=== PATIENT | female | born 1970 | race Caucasian/White ===

== ENCOUNTER 2019-10-01 23:02 | Emergency (ER) | payer MEDICAID, SELFPAY ==
[2019-10-01 23:17] VITALS: PULSE 95; RESP 16; TEMP 36.8; O2SAT 98; BMI 33.2
[2019-10-01 23:49] LABS: Basophils # 0.1 10^3/uL (0.0-0.1); Basophils % 0.5 %; Eosinophils # 0.1 10^3/uL (0.0-0.8); Eosinophils % 0.6 %; Hematocrit 39.4 % (37.0-47.0); Hemoglobin 12.2 g/dL (11.5-15.3); Lymphocytes # 4.4 10^3/uL (0.8-4.8); Mean Corpuscular Hemoglobin 27.5 pg (28.0-34.0); Mean Corpuscular Volume 88.9 fL (81-99); Mean Platelet Volume 10.2 fL (7.4-10.4); Monocytes # 0.7 10^3/uL (0.2-0.9); Monocytes % 5.5 %; Neutrophils # 7.9 10^3/uL (1.8-7.7); Neutrophils % 60.1 %; Nucleated Red Blood Cells % 0 %; Platelet Count 481 10^3/cmm (130-400); Red Blood Count 4.43 10^6/uL (4.1-5.3); White Blood Count 13.2 10^3/uL (4.0-10.0)
[2019-10-02 00:04] LABS: Alanine Aminotransferase 10 U/L (0-33); Albumin Level 4.4 g/dL (3.5-5.2); Alkaline Phosphatase 108 IU/L (35-105); Anion Gap 17.9 (5-19); Aspartate Amino Transferase 12 U/L (0-32); Blood Urea Nitrogen 8 mg/dL (6-20); Carbon Dioxide 24 mmol/L (22-29); Chloride 105 mmol/L (98-107); Globulin 3.4 g/dL (1.3-4.6); Glomerular Filtration Rate 76.6 mL/min (90-130); Glucose 116 mg/dL (74-109); Lipase 23 U/L (13-60); Potassium 3.9 mmol/L (3.5-5.1); Sodium 143 mmol/L (136-145); Total Bilirubin 0.2 mg/dL (0.15-1.2); Total Protein 7.8 g/dL (6.6-8.7)
[2019-10-02 00:37] VITALS: RESP 18
--- NOTE | 2019-10-02 00:39 | ED_ITS ---
HPI - General Adult General: Chief complaint: Abdominal Pain Stated complaint: arriaga & abd pain Time Seen by Provider: 10/02/19 00:31 History of Present Illness: HPI narrative: Patient here complaining about vaginal bleeding over the last 2 months. Usually uses pads. She is seen her primary care doctor gave her steroids she said for 3 days and it did stop but has started back up. Patient did have a couple of minor nosebleeds on the way in the state that they have a wood stove at home and air is very dry and she does have allergies at times. MD complaint: DUB Onset (ago): month(s) (2) Radiation: non-radiation Severity: mild Relieving factors: none Associated symptoms: Deny chest pain, dyspnea, headache(s), nausea, rash or vomiting Review of Systems Const: Denies: fever, chills or body aches Eyes: Denies: change in vision or blurry vision ENMT: Denies: throat pain or nasal congestion Card: Denies: chest pain or shortness of breath on exertion Resp: Denies: shortness of breath, productive cough or non-productive cough GI: Denies: abdominal pain, nausea or vomiting : Reports: bleeding between periods and change in menstrual flow; Denies: painful menstruation or absence of menstruation Musc: Denies: extremity pain Skin/Breast: Denies: rash Neuro: Denies: headache Psych: Denies: anxiety or depression Patrick/Lymph: Denies: easy bruising PFSH ED PFSH: Statuses (acute, chronic, etc) shown below reflect problem list status as previously entered and may not be historically accurate Social History Smoking and tobacco status: former smoker Female Reproductive History: Date of last menstrual period: 10/01/19 Physical Exam Const: COMMON NORMALS: no apparent distress, average body habitus and oriented x3 HENMT: COMMON NORMALS: normocephalic HEAD & SCALP: normal to inspection and normocephalic FACE & SINUS: normal facial exam Eye: COMMON NORMALS: conjunctivae normal GENERAL EYE: normal appearance of both eyes CONJUNCTIVA: Yes conjunctivae normal Neck/C-Spine: COMMON NORMALS: no JVD Chest: COMMONS NORMALS: inspection of chest normal Resp: COMMON NORMALS: normal respiratory effort and clear to auscultation bilaterally AUSCULTATION: clear to auscultation bilaterally Cardio: COMMON NORMALS: no JVD, regular rate and regular rhythm RATE: regular rate RHYTHM: regular rhythm GI: COMMON NORMALS: normal to inspection, nondistended, normoactive bowel sounds Extremity: COMMON NORMALS: normal to inspection and full ROM Neuro: COMMON NORMALS: oriented x3 Course Vital Signs: Vital signs: Vital Signs Temperature 98.2 F 10/01/19 23:17 Pulse Rate 98 10/02/19 00:58 Respiratory Rate 16 10/02/19 00:58 Blood Pressure 139/81 10/02/19 00:58 Pulse Oximetry 97 10/02/19 00:58 [facility] - General Adult Lab Data: Labs: Lab Results 10/01/19 10/01/19 Range/Units 23:40 23:40 WBC 13.2 H (4.0-10.0) 10^3/ uL RBC 4.43 (4.1-5.3) 10^6/u L Hgb 12.2 (11.5-15.3) g/dL Hct 39.4 (37.0-47.0) % MCV 88.9 (81-99) fL MCH 27.5 L (28.0-34.0) pg MCHC 31.0 (30.0-36.0) g/dL RDW 15.0 (12.1-15.1) % Plt Count 481 H (130-400) 10^3/c mm MPV 10.2 (7.4-10.4) fL Neut % (Auto) 60.1 % Lymph % (Auto) 33.0 % [place] % (Auto) 5.5 % Eos % (Auto) 0.6 % Baso % (Auto) 0.5 % Neut # (Auto) 7.9 H (1.8-7.7) 10^3/u L Lymph # (Auto) 4.4 (0.8-4.8) 10^3/u L [place] # (Auto) 0.7 (0.2-0.9) 10^3/u L Eos # (Auto) 0.1 (0.0-0.8) 10^3/u L Baso # (Auto) 0.1 (0.0-0.1) 10^3/u L Nucleated RBC % (a uto) 0 % Nucleated RBCs # 0.0 /100WBC Sodium 143 (136-145) mmol/L Potassium 3.9 (3.5-5.1) mmol/L Chloride 105 (98-107) mmol/L Carbon Dioxide 24 (22-29) mmol/L Anion Gap 17.9 (5-19) BUN 8 (6-20) mg/dL Creatinine 0.8 (0.5-0.9) mg/dL GFR Calculation 76.6 L (90-130) mL/min Glucose 116 H (74-109) mg/dL Calcium 10.0 (8.6-10.0) mg/Dl Total Bilirubin 0.2 (0.15-1.2) mg/dL AST 12 (0-32) U/L ALT 10 (0-33) U/L Alkaline Phosphata se 108 H (35-105) IU/L Total Protein 7.8 (6.6-8.7) g/dL Albumin 4.4 (3.5-5.2) g/dL Globulin 3.4 (1.3-4.6) g/dL Lipase 23 (13-60) U/L Discharge Plan Discharge Patient Disposition: Home, Self-Care Clinical Impression: DUB (dysfunctional uterine bleeding) Condition: Stable Prescriptions: New Zofran 4 mg tablet 4 mg PO Q8H PRN (Reason: nausea and vomiting) Qty: 14 RF: 0 Provera 10 mg tablet 10 mg PO DAILY 10 Days Qty: 10 RF: 0 Discharge Orders: Discharge Order (Routine); Ordered 10/02/19 Ordered By: Isacc Ballard Referrals: Adri Vazquez MD [Primary Care Provider] - Discharge Diet: Usual diet Discharge Activity: Resume usual activity Patient Instructions: Dysfunctional Uterine Bleeding (ED) Activity Restrictions/Additional Instructions: Follow-up with medical provider as directed. Take medications as prescribed. Return to the ER are your medical provider if condition worsens. Read and understand discharge instructions. Patient instructed follow-up Dr. Terrazas is here she might need a pelvic ultrasound if bleeding does not dissipate. 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
--- NOTE | 2019-10-02 00:39 | PC.NURSE ---
Patient reports that she has had abdominal pain and vaginal bleeding for 2 months. Patient denies any other symptoms at this time.
[2019-10-02] MEDS: medroxyprogesterone 2.5 mg Tablet 10 MG PO (00:54)
[2019-10-02] MEDS: ondansetron 4 MG Tablet PO (00:55)
[2019-10-02 00:58] VITALS: BP 139/81; PULSE 98; RESP 16; O2SAT 97
== END 2019-10-02 01:03 | disposition home or self-care (01) ==
PROVIDERS: Emergency Medicine; Emergency Provider Nurse Practitioner Family; Family Provider Family Medicine; PCP Family Medicine
DX: N93.8 Other specified abnormal uterine and vaginal bleeding (principal); Z87.891 Personal history of nicotine dependence
CPT/HCPCS: 36415; 80053; 83690; 85025; 99281; Q0162

== ENCOUNTER 2019-11-19 22:58 | Emergency (ER) | payer MEDICAID, SELFPAY ==
--- NOTE | 2019-11-19 23:00 | ED_ITS ---
Entered by Gia Samuel, acting as scribe for Ramya Marley MD HPI - General Adult General: Chief complaint: Extremity Problem,Nontraumatic Stated complaint: post op problems Time Seen by Provider: 11/19/19 22:59 Source: patient and family Mode of arrival: wheelchair History of Present Illness: HPI narrative: 49 y/o female presents to the ED with complaint of right foot pain. Pt states she had surgery last on her ankle for cyst removal. She is supposed to be non-weight bearing and was given crutches. Pt has been walking on it periodically, especially when she stands to go to the bathroom. She thinks she may have popped a stitch and would like to have it looked at. complaint: Right foot pain Onset (ago): day(s) Location: right and lower extremity Severity: mild Exacerbating factors: movement and other (weight bearing) Associated symptoms: Deny chest pain, dyspnea, headache(s), nausea, rash or vomiting Review of Systems Const: Denies: fever, chills, body aches or change in appetite Eyes: Denies: blurry vision or eye discomfort ENMT: Denies: throat pain or dental pain Card: Denies: chest pain Resp: Denies: shortness of breath GI: Denies: abdominal pain, nausea, vomiting or diarrhea : Denies: painful urination Musc: Denies: neck pain or back pain Skin/Breast: Denies: rash Neuro: Denies: headache Psych: Denies: depression Patrick/Lymph: Denies: easy bruising All/Imm: Denies: hives PFS ED PFSH: Medical History (Updated 11/19/19 @ 23:34 by Ramya Marley MD) Asthma Chronic migraine History of closed head injury Hyperlipidemia Insomnia Surgical History (Updated 11/11/19 @ 15:31 by Adri Vazquez MD) H/O tubal ligation Hx of cholecystectomy Hx of tonsillectomy Social History Smoking and tobacco status: former smoker Alcohol intake: never Female Reproductive History: Date of last menstrual period: 10/01/19 Physical Exam Const: COMMON NORMALS: no apparent distress and oriented x3 HENMT: COMMON NORMALS: normocephalic and head/scalp atraumatic HEAD & SCALP: normocephalic and atraumatic Eye: COMMON NORMALS: PERRL and EOMs intact bilaterally PUPIL: Yes PERRL Neck/C-Spine: COMMON NORMALS: full ROM and supple Chest: COMMONS NORMALS: inspection of chest normal and palpation of chest normal Resp: COMMON NORMALS: normal respiratory effort, no retractions, no use of accessory muscles and clear to auscultation bilaterally AUSCULTATION: clear to auscultation bilaterally Cardio: COMMON NORMALS: regular rate, regular rhythm and no murmurs RATE: regular rate RHYTHM: regular rhythm GI: COMMON NORMALS: normal to inspection, nondistended, normoactive bowel sounds, soft to palpation, non-tender and no masses PALPATION: Yes soft Extremity: NARRATIVE EXTREMITY EXAM: healing incision noted to right ankle, all stitches accounted for Neuro: COMMON NORMALS: oriented x3, moves all extremities and no focal motor deficits Psych: COMMON NORMALS: mental status grossly normal, thought process normal and cooperative THOUGHT PROCESS: normal thought process Skin: NARRATIVE SKIN EXAM: bruising noted to ankle and foot Course 2 Vital Signs: Vital signs: Vital Signs Temperature 97.9 F 11/19/19 23:11 Pulse Rate 88 11/19/19 23:33 Respiratory Rate 16 11/19/19 23:11 Blood Pressure 142/80 11/19/19 23:11 Pulse Oximetry 95 11/19/19 23:11 MDM - General Adult MDM Narrative: Medical decision making narrative: Patient presents here with wanting a wound check. Patient walked on her right foot that had surgery on it in 1 to make sure she did not pop a stitch. I did undress her dressing and wound is well-appearing with all stitches intact. She has no signs of infection and no bleeding. We will redress and she is to follow-up as scheduled next . Discharge Plan Discharge Patient Disposition: Home, Self-Care Clinical Impression: Visit for wound check Condition: Stable Prescriptions: No Action rizatriptan 10 mg tablet,disintegrating 10 mg PO ONCE RF: 0 albuterol sulfate 90 mcg/actuation HFA aerosol inhaler 1 - 2 puff INHALATION QID RF: 0 rizatriptan [Maxalt] 10 mg tablet 10 mg PO ONCE PRN (Reason: migraine headache) RF: 0 melatonin 10 mg capsule 10 mg PO .COMPLEX RF: 0 Zofran 4 mg tablet 4 mg PO Q8H PRN (Reason: nausea and vomiting) Qty: 14 RF: 0 Discharge Orders: Discharge Order (Routine); Ordered 11/19/19 Ordered By: Ramya Marley Referrals: Adri Vazquez MD [Primary Care Provider] - Discharge Diet: Advance as tolerated Discharge Activity: Resume usual activity Patient Instructions: Post Operative Pain Discharge Date/Time: 11/19/19 23:47 Coding Level of Care Code ED Airfield Services Officer for Chg Fwd Exam Comprehensive The documentation recorded by the Jimmie simmons Ashley, accurately reflects the service I personally performed and the decisions made by Donell gallegos Korby, MD Nov 19, 2019 22:58
[2019-11-19 23:11] VITALS: BP 142/80; PULSE 94; RESP 16; TEMP 36.6; O2SAT 95; BMI 37.5
[2019-11-19 23:33] VITALS: PULSE 88
[2019-11-19 23:47] VITALS: PULSE 88; RESP 16; O2SAT 99
== END 2019-11-19 23:47 | disposition home or self-care (01) ==
LOC: ER 23:40
PROVIDERS: Emergency Provider Emergency Medicine; Family Provider Family Medicine; PCP Family Medicine
DX: Z48.01 Encounter for change or removal of surgical wound dressing (principal); J45.909 Unspecified asthma, uncomplicated; E78.5 Hyperlipidemia, unspecified; Z87.891 Personal history of nicotine dependence
CPT/HCPCS: 99281

== ENCOUNTER → 2020-01-08 15:49 | Outpatient (BNVA) | payer MEDICAID, SELFPAY | PROVIDERS: Family Provider Family Medicine; PCP Family Medicine; Visit Provider Emergency Medicine | DX: J06.9 Acute upper respiratory infection, unspecified (principal); Z11.59 Encounter for screening for other viral diseases; J40 Bronchitis, not specified as acute or chronic | CPT/HCPCS: 87071; 87400; 87635; 87880 ==

== ENCOUNTER 2020-05-15 17:28 | Emergency (ER) | payer MEDICAID, SELFPAY ==
[2020-05-15 17:29] VITALS: BP 138/87; PULSE 110; RESP 20; TEMP 36.8; O2SAT 97; BMI 30.6
--- NOTE | 2020-05-15 17:37 | W.ED.ABDPA2 ---
HPI - Abdominal Pain General: Chief Complaint: Abdominal Pain Stated Complaint: weakness/vomiting Time Seen by Provider: 05/15/20 17:34 Source: patient Mode of arrival: ambulatory Limitations: no limitations History of Present Illness: HPI narrative: Patient comes in today with complaints of nausea and diarrhea. [facility] [place] and was diagnosed with a sinus infection. Patient was given a dose of Augmentin but was not able to tolerate it and threw up. Patient spouse states that last night she had a heavy meal with a lot of fat and grease and since she do not have a gallbladder he believes that is what her symptoms are more from than the sinus infection. Patient spouse states that she sometimes gets diarrhea after eating heavy meals and it causes her to get dehydrated. Patient appears mildly unwell. Patient appears in no pain. Associated Symptoms: Reports diarrhea, nausea and vomiting Review of Systems General: Reports: 10 or more systems reviewed and unremarkable except in HPI and below GI: Reports: nausea, vomiting and diarrhea PFS ED PFSH: Medical History (Updated 05/15/20 @ 18:56 by DANIKA Stewart) Asthma Chronic migraine History of closed head injury Hyperlipidemia Insomnia Surgical History H/O tubal ligation Hx of cholecystectomy Hx of tonsillectomy Family History Father Cancer Social History Smoking and tobacco status: former smoker Quit status (tobacco): has quit using tobacco Alcohol intake: never Desire information about alcohol rehabilitation?: No Desire information about substance/drug rehabilitation?: No History of recent travel: No Current gender identity: Female Female Reproductive History: Spontaneous abortions: No Physical Exam Const: COMMON NORMALS: no acute distress and patient oriented x3 GENERAL APPEARANCE: cooperative HENMT: COMMON NORMALS: normocephalic and Normal external nose present HEAD & SCALP: normal to inspection and normocephalic NOSE: Normal external nose present TYMPANIC MEMBRANE: TM abnormal TM laterality: right Details: dull and fluid behind TM MOUTH: Normal oral and palatal mucosa present THROAT: posterior oropharynx normal Eye: GENERAL EYE: appearance normal, both eyes and all related structures Neck/C-Spine: COMMON NORMALS: full ROM Lymph: LYMPHATIC: no lymphadenopathy noted Chest: COMMONS NORMALS: normal inspection of the chest Resp: COMMON NORMALS: normal respiratory effort EFFORT & INSPECTION: Yes able to speak in complete sentences Cardio: COMMON NORMALS: regular rate and regular rhythm RATE: regular rate RHYTHM: regular rhythm GI: COMMON NORMALS: non-tender : COMMON NORMALS: Yes no CVA tenderness BLADDER/KIDNEY EXAM: Yes no CVA tenderness Back/Pelvis: COMMON NORMALS: no CVA tenderness and thoracic and lumbar spine normal to inspection Extremity: COMMON NORMALS: normal to inspection Neuro: COMMON NORMALS: patient oriented x3 and moves all extremities Psych: COMMON NORMALS: mental status grossly normal and cooperative Skin: COMMON NORMALS: no rashes or lesions noted GENERAL SKIN EXAM: no rashes or lesions noted Course Vital Signs: Vital signs: Vital Signs Temperature 98.3 F 05/15/20 17:29 Pulse Rate 91 05/15/20 17:49 Respiratory Rate 20 H 05/15/20 17:29 Blood Pressure 118/70 05/15/20 17:49 Pulse Oximetry 97 05/15/20 17:29 MDM - Abdominal Pain MDM Narrative: Medical decision making narrative: Patient comes in today for complaints of nausea and vomiting. Patient reports being started on medication for a sinus infection this morning and started throwing up after taking medication. On exam patient has some mucosal swelling of the sinuses. Right tympanic membrane is dull with purulent fluid behind it. No cervical lymphadenopathy. Lungs are clear to auscultation. Skin is warm and dry. Differential diagnosis includes but not limited to chronic otitis media, sinusitis, adverse effect of drug, malingering. Laboratory values were unremarkable. Encourage patient drink plenty of fluids. Recommended continuation of the medication as directed. Follow-up with primary care as needed. Lab Data: Labs: Lab Results 05/15/20 05/15/20 05/15/20 Range/Units 17:47 17:47 17:55 WBC 11.6 H (4.0-10.0) 10^3/ uL RBC 4.34 (4.1-5.3) 10^6/u L Hgb 11.0 L (11.5-15.3) g/dL Hct 36.2 L (37.0-47.0) % MCV 83.4 (81-99) fL MCH 25.3 L (28.0-34.0) pg MCHC 30.4 (30.0-36.0) g/dL RDW 15.9 H (12.1-15.1) % Plt Count 399 (130-400) 10^3/c mm MPV 11.0 H (7.4-10.4) fL Neut % (Auto) 59.6 % Lymph % (Auto) 31.6 % [place] % (Auto) 6.3 % Eos % (Auto) 1.5 % Baso % (Auto) 0.7 % Neut # (Auto) 6.92 (1.8-7.7) 10^3/u L Lymph # (Auto) 3.7 (0.8-4.8) 10^3/u L [place] # (Auto) 0.7 (0.2-0.9) 10^3/u L Eos # (Auto) 0.2 (0.0-0.8) 10^3/u L Baso # (Auto) 0.1 (0.0-0.1) 10^3/u L Nucleated RBC % (a uto) 0 % Nucleated RBCs # 0.0 /100WBC Sodium 137 (136-145) mmol/L Potassium 3.7 (3.5-5.1) mmol/L Chloride 101 (98-107) mmol/L Carbon Dioxide 26 (22-29) mmol/L Anion Gap 13.7 (5-19) BUN 9 (6-20) mg/dL Creatinine 0.7 (0.5-0.9) mg/dL GFR Calculation 88.9 L (90-130) mL/min Glucose 107 (65-115) mg/dL Calculated Osmolal ity 280 L (285-295) mOsm/k g Calcium 8.7 (8.5-10.5) mg/dL Total Bilirubin 0.3 (0.15-1.2) mg/dL AST 13 (0-32) U/L ALT 10 (0-33) U/L Alkaline Phosphata se 111 H (35-105) IU/L Total Protein 8.2 (6.6-8.7) g/dL Albumin 4.2 (3.5-5.2) g/dL Globulin 4.0 (1.3-4.6) g/dL Lipase 24 (13-60) U/L Urine Color Yellow (Yellow) Urine Appearance Clear (CLEAR) Urine pH 5 (5-7) Ur Specific Gravit y 1.010 (1.005-1.030) Urine Protein Neg (Negative) Urine Glucose (UA) Norm (Normal) Urine Ketones Negative (Negative) Urine Blood Neg (Negative) Urine Nitrate Negative (Negative) Urine Bilirubin Neg (NEGATIVE) Urine Urobilinogen Norm (Negative) mg/dL Ur Leukocyte Rose ase Negative (Negative) Discharge Plan Discharge Patient Disposition: Home Clinical Impression: Nausea & vomiting Qualifiers: Vomiting type: unspecified Vomiting Intractability: non-intractable Qualified Code(s): R11.2 - Nausea with vomiting, unspecified Sinusitis Qualifiers: Sinusitis location: unspecified location Chronicity: acute Recurrence: recurrent Qualified Code(s): J01.91 - Acute recurrent sinusitis, unspecified Condition: Stable Prescriptions: No Action tramadol 50 mg tablet 50 mg PO Q6H PRN (Reason: pain) Qty: 20 RF: 0 prednisone 20 mg tablet 20 mg PO DAILY 5 Days Qty: 5 RF: 0 ondansetron 4 mg tablet,disintegrating 4 mg PO Q6H PRN (Reason: nausea and vomiting) Qty: 12 RF: 0 fexofenadine-pseudoephedrine [Vane-D 12 Hour] 60-120 mg tablet extended release 12 hr 1 tab PO Q12H PRN (Reason: sinus symptoms) 15 Days Qty: 30 RF: 0 amoxicillin-pot clavulanate 875-125 mg tablet 1 tab PO BID 7 Days Qty: 14 RF: 0 loratadine 10 mg tablet 10 mg PO DAILY PRN (Reason: Allergy Symptoms) RF: 0 Maxalt 10 mg tablet 10 mg PO PRN PRN (Reason: migraine headache) RF: 0 albuterol sulfate 90 mcg/actuation HFA aerosol inhaler 1 - 2 puff INHALATION QID PRN (Reason: Shortness Of Breath) RF: 0 Aspir-81 81 mg Tablet,Delayed Release (Dr/Ec) 81 mg PO PRN RF: 0 Discharge Orders: Discharge Order (Routine); Ordered 05/15/20 Ordered By: Federico Escalona Referrals: Adri Vazquez MD [Primary Care Provider] - Discharge Diet: Usual diet Discharge Activity: Increase activity as tolerated Patient Instructions: Vomiting - Adult Activity Restrictions/Additional Instructions: Light diet. Drink plenty of fluids. Continue routine medications as directed. Follow-up with primary care as needed. Coding Level of Care Code ED Infant Room Teacher for Nettie Fweli Exam Comprehensive
[2020-05-15 17:49] VITALS: BP 118/70; BP 122/76; BP 126/79; PULSE 87; PULSE 91; PULSE 92
[2020-05-15 17:56] LABS: Basophils # 0.1 10^3/uL (0.0-0.1); Basophils % 0.7 %; Eosinophils # 0.2 10^3/uL (0.0-0.8); Eosinophils % 1.5 %; Hematocrit 36.2 % (37.0-47.0); Lymphocytes # 3.7 10^3/uL (0.8-4.8); Lymphocytes % 31.6 %; Mean Corpuscular HGB Conc 30.4 g/dL (30.0-36.0); Mean Corpuscular Hemoglobin 25.3 pg (28.0-34.0); Mean Corpuscular Volume 83.4 fL (81-99); Monocytes # 0.7 10^3/uL (0.2-0.9); Monocytes % 6.3 %; Neutrophils # 6.92 10^3/uL (1.8-7.7); Neutrophils % 59.6 %; Nucleated Red Blood Cells % 0 %; Platelet Count 399 10^3/cmm (130-400); Red Blood Count 4.34 10^6/uL (4.1-5.3); Red Cell Distribution Width 15.9 % (12.1-15.1); White Blood Count 11.6 10^3/uL (4.0-10.0)
[2020-05-15] MEDS: sodium chloride 0.9% 1,000 ML 999 ML IV (18:03)
[2020-05-15] MEDS: ondansetron 2 mg/ML SDV 2 mL 4 MG IVP (18:03)
[2020-05-15 18:08] LABS: Add Urine Microscopic? NO
[2020-05-15 18:10] LABS: Alanine Aminotransferase 10 U/L (0-33); Albumin Level 4.2 g/dL (3.5-5.2); Alkaline Phosphatase 111 IU/L (35-105); Anion Gap 13.7 (5-19); Aspartate Amino Transferase 13 U/L (0-32); Blood Urea Nitrogen 9 mg/dL (6-20); Calcium 8.7 mg/dL (8.5-10.5); Carbon Dioxide 26 mmol/L (22-29); Chloride 101 mmol/L (98-107); Glomerular Filtration Rate 88.9 mL/min (90-130); Glucose 107 mg/dL (65-115); Lipase 24 U/L (13-60); Osmolality Calculated 280 mOsm/kg (285-295); Potassium 3.7 mmol/L (3.5-5.1); Sodium 137 mmol/L (136-145); Total Bilirubin 0.3 mg/dL (0.15-1.2); Total Protein 8.2 g/dL (6.6-8.7)
[2020-05-15 18:13] LABS: Bilirubin Urine Neg (NEGATIVE); Blood Urine Neg (Negative); Glucose Urine UA Norm (Normal); Ketones Urine Negative (Negative); Leukocyte Esterase Urine Negative (Negative); Nitrate Urine Negative (Negative); Protein Urine Neg (Negative); Urine Appearance Clear (CLEAR); Urine Color Yellow (Yellow); Urobilinogen Urine Norm (Negative); pH Urine 5 (5-7)
[2020-05-15 19:01] VITALS: BP 118/81; PULSE 91; RESP 18; TEMP 36.8; O2SAT 98
[2020-05-15] MEDS: ketorolac 30 mg/mL INJ 15 MG IVP (19:11)
[2020-05-15 19:14] VITALS: BP 118/81; PULSE 91; RESP 18; TEMP 36.8; O2SAT 98
== END 2020-05-15 19:14 | disposition home or self-care (01) ==
PROVIDERS: Emergency Medicine; Emergency Provider Nurse Practitioner Family; PCP Family Medicine
DX: J01.91 Acute recurrent sinusitis, unspecified (principal); R11.2 Nausea with vomiting, unspecified; Z79.82 Long term (current) use of aspirin; E78.5 Hyperlipidemia, unspecified; Z87.891 Personal history of nicotine dependence
CPT/HCPCS: 12345; 80053; 81003; 83690; 85025; 96361; 96374; 96375; 99283; J1885; J2405; J7030

== ENCOUNTER 2021-01-09 15:06 | Emergency (ER) | payer MEDICAID, SELFPAY ==
[2021-01-09 15:37] VITALS: BP 121/72; PULSE 109; RESP 15; TEMP 36.6; O2SAT 96; BMI 35.3
--- NOTE | 2021-01-09 16:30 | XRR_ITS ---
PROCEDURE INFORMATION: Exam: XR Left Knee Exam date and time: 01/09/2021 4:38 PM Age: 50 years old Clinical indication: Pain; Knee; Left TECHNIQUE: Imaging protocol: XR Left knee. Views: 3 views. COMPARISON: No relevant prior studies available. FINDINGS: Bones/joints: No acute displaced fracture or dislocation. 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 Soft tissues: Normal. XR/XR knee LT 3V* [id number] IMPRESSION: 1. No acute abnormality. 2. Mild osteoarthritis, greatest in medial compartment.
--- NOTE | 2021-01-09 16:56 | W.ED.EXTPRO ---
HPI - Extremity Problem General: Chief complaint: Extremity Problem,Nontraumatic Stated complaint: LFT KNEE PAIN Time Seen by Provider: 01/09/21 16:29 History of Present Illness: HPI Narrative: 50-year-old female comes in complaining of left knee pain. No trauma she had it x-rayed previously was told there was something broken she has been using a cane symptoms got worse last night she denies any recent trauma she remotely had some injury to it and was told she would have difficulty with her going forward. MD Complaint: joint pain Onset (ago): day(s) Pain Consistency: constant Location: left and knee Quality: sharp Radiation: none Relieving factors: immobilization and elevation Exacerbating factors: weight bearing, walking and palpation Associated symptoms: Deny arthralgias, chest pain, fever(s), myalgias, rash or short of breath Review of Systems Const: Denies: fever(s) ENMT: Denies: throat pain, ear or mastoid pain, nasal discharge or nasal congestion Card: Denies: chest pain Resp: Denies: dyspnea, productive cough or non-productive cough GI: Denies: abdominal pain, nausea, vomiting, hematemesis, coffee ground emesis, diarrhea, constipation, bloating, hematochezia or melena : Denies: flank pain, difficulty voiding, dysuria, urinary frequency or urinary urgency Skin/Breast: Denies: rash PFSH ED PFSH: Medical History (Updated 01/09/21 @ 17:01 by Jose Carlos Tee DO) Asthma Chronic migraine History of closed head injury Hyperlipidemia Insomnia Surgical History H/O tubal ligation Hx of cholecystectomy Hx of tonsillectomy Family History Father Cancer Social History Smoking and tobacco status: former smoker Quit status (tobacco): has quit using tobacco Alcohol intake: never Desire information about alcohol rehabilitation?: No Desire information about substance/drug rehabilitation?: No History of recent travel: No Current gender identity: Female Female Reproductive History: Spontaneous abortions: No Physical Exam Const: COMMON NORMALS: no acute distress GENERAL APPEARANCE: cooperative and comfortable ORIENTATION/CONSCIOUSNESS: Yes awake, Yes oriented to person, Yes oriented to place and Yes oriented to time HENMT: COMMON NORMALS: normocephalic, atraumatic and hearing grossly normal bilaterally HEAD & SCALP: normocephalic and atraumatic Neck/C-Spine: COMMON NORMALS: no JVD Resp: COMMON NORMALS: normal respiratory effort, No retractions, No use of accessory muscles and clear to auscultation bilaterally AUSCULTATION: clear to auscultation bilaterally Cardio: COMMON NORMALS: no JVD, regular rate, regular rhythm and No murmurs present (Cardio) RATE: regular rate RHYTHM: regular rhythm GI: COMMON NORMALS: Soft to palpation and No hepatosplenomegaly present AUSCULTATION: Yes normoactive bowel sounds PALPATION: Yes Soft to palpation, No Tenderness to palpation present (GI), No Guarding due to palpation present (GI) and Yes No hepatosplenomegaly present Extremity: COMMON NORMALS: normal to inspection, capillary refill normal, no clubbing, cyanosis or edema, no calf tenderness and no pedal edema Neuro: SENSORIUM/ORIENTATION: Yes oriented to person, Yes oriented to place and Yes oriented to time Skin: COMMON NORMALS: no rashes or lesions noted GENERAL SKIN EXAM: no rashes or lesions noted Course Vital Signs: Vital signs: Vital Signs Temperature 97.8 F 01/09/21 15:37 Pulse Rate 100 01/09/21 17:27 Respiratory Rate 18 01/09/21 17:27 Blood Pressure 123/68 01/09/21 17:27 Pulse Oximetry 99 01/09/21 17:27 MDM - Extremity (Nontraumatic) MDM Narrative: Medical decision making narrative: We will set her up to see Ortho as follow-up nonweightbearing with knee immobilizer. Discharge Plan Discharge Patient Disposition: Home Clinical Impression: Closed fracture fibula, head Condition: Stable Prescriptions: New tramadol 50 mg tablet 50 mg PO Q6H PRN (Reason: pain) Qty: 10 RF: 0 No Action Maxalt 10 mg tablet 10 mg PO PRN PRN (Reason: migraine headache) Qty: 9 RF: 3 ibuprofen 800 mg tablet 800 mg PO TID RF: 0 tramadol 50 mg tablet 50 mg PO Q6H PRN (Reason: pain) Qty: 20 RF: 0 Discharge Orders: Discharge ED (Routine); Ordered 01/09/21 Ordered By: Jose Carlos Tee Referrals: Adri Vazquez MD [Primary Care Provider] - Patient Instructions: Opioid Safety Activity Restrictions/Additional Instructions: For knee immobilizer until released by Ortho. water manager will call to refer to orthopedics Coding Level of Care Code ED Outside Sales Representative Insurance for Chg Fwd Exam Comprehensive
[2021-01-09 17:27] VITALS: BP 123/68; PULSE 100; RESP 18; O2SAT 99
--- NOTE | 2021-01-11 09:36 | DCPLANNER ---
operations program manager had message to schedule a follow up appointment for patient with ortho for a fibular head fracture. operations program manager called the ortho clinic, spoke with Mariposa, gave clinic patients information. operations program manager was told that patients information would be printed and reviewed. Clinic will call patient with appointment information.
--- NOTE | 2021-01-12 08:15 | DCPLANNER ---
Patient has a follow up appointment scheduled for December at 1:[address] Breen at [facility]. Clinic will call patient with appointment information.
--- NOTE | 2021-03-24 07:52 | DCPLANNER ---
Patient had a follow up appointment scheduled for 01.14.[address] Breen at [facility] - patient did attend appointment.
== END 2021-01-09 17:33 | disposition home or self-care (01) ==
PROVIDERS: Emergency Provider Family Medicine; PCP Family Medicine
DX: S82.492A Other fracture of shaft of left fibula, initial encounter for closed fracture (principal); X58.XXXA Exposure to other specified factors, initial encounter; E78.5 Hyperlipidemia, unspecified; Z87.891 Personal history of nicotine dependence
CPT/HCPCS: 29530; 73562; 99283

== ENCOUNTER 2021-01-25 14:37 | Outpatient (CLI) | payer MEDICAID, SELFPAY ==
--- NOTE | 2021-01-25 16:00 | MR_ITS ---
WS: [id number] MRI LEFT KNEE HISTORY: M25.569 - Pain in unspecified knee COMPARISON: LEFT knee radiograph 01/09/2021 Anterior cruciate ligament: Intact. Posterior cruciate ligament: Intact. Medial collateral ligament: Small amount of fluid adjacent to the MCL. There is mild separation of th e distal MCL from the tibia. Posterior lateral corner structures: Intact. Medial menisci: Complex tear involving the posterior horn. Tear extends to the superior and inferior articular surfaces. Tear extends towards the far medial meniscus. Lateral meniscus: Intact. Normal signal, size and shape. Extensor mechanism: Distal quadriceps tendon and patellar tendons are intact. Fluid and soft tissue: No joint effusion. Very small Phan's cyst. Osseous and articular structures: Patellofemoral compartment: Moderate chondromalacia. Moderate joint space narrowing with thinning and fissuring of the cartilage. Greatest amount of disease involves the lateral patellar facet cartilage . There is a small amount of subchondral marrow edema in the lateral patellar facet. Medial compartment: Mild narrowing of the medial compartment. Significant loss of cartilage in the me dial compartment with small osteophytes. Largest full-thickness defect measures 4 mm transversely. Ad ditional full-thickness cartilage defect in the anterior tibial plateau. Moderate amount of marrow ed hamlet involving the tibial plateau greatest towards the MCL. Marrow edema extends over a length of 3.6 cm x 1.1 cm transversely. Lateral compartment: Moderate narrowing of the lateral compartment with moderate chondromalacia. Ther e is a small amount of edema at the base of the lateral tibial spine. MR/MR knee LT wo con* [id number] IMPRESSION: 1. Moderate internal derangement involving the medial compartment. Joint space narrowing with loss of cartilage and a moderate amount of marrow edema with os teophytes. 2. Additional MCL sprain with mild separation of the distal MCL from the tibia . 3. Mild to moderate osteoarthritic changes in the lateral compartment but not as significant as in the medial compartment. 4. Moderate chondromalacia patellofemoral compartment. 5. Complex tear and intrasubstance degeneration the posterior horn medial meni scus.
== END 2021-01-25 14:38 | disposition home or self-care (01) ==
LOC: RADSHAW 14:41
PROVIDERS: PCP Family Medicine; Visit Provider Orthopaedic Surgery
DX: M25.562 Pain in left knee (principal); S83.232A Complex tear of medial meniscus, current injury, left knee, initial encounter; S83.412A Sprain of medial collateral ligament of left knee, initial encounter; X58.XXXA Exposure to other specified factors, initial encounter; M22.42 Chondromalacia patellae, left knee
CPT/HCPCS: 73721

== ENCOUNTER → 2021-05-14 09:53 | Outpatient (BNVA) | payer MEDICAID, SELFPAY | PROVIDERS: PCP Family Medicine; Visit Provider Orthopaedic Surgery | DX: Z01.812 Encounter for preprocedural laboratory examination (principal); Z20.822 Contact with and (suspected) exposure to COVID-19 | CPT/HCPCS: 87635 ==

== ENCOUNTER 2021-05-15 21:52 | Emergency (ER) | payer MEDICAID, SELFPAY ==
[2021-05-15 22:10] VITALS: BP 130/69; PULSE 123; RESP 20; TEMP 38.3; O2SAT 93; BMI 36.7
[2021-05-15 22:18] VITALS: PULSE 118; RESP 22; O2SAT 98
--- NOTE | 2021-05-15 22:21 | ED_ITS ---
HPI - General Adult General: Chief complaint: General Medical Stated complaint: NAUSEA W/FEVER Time Seen by Provider: 05/15/21 22:21 History of Present Illness: HPI narrative: 51-year-old female comes in today with complaints of nausea and vomiting and fever starting today. Patient had a hysterectomy done 2 weeks ago. Patient reports healing well from that but started having symptoms with fever today. On exam patient mildly unwell and nontoxic. Patient appears in no pain. Patient reports feeling like she is chilling. Associated symptoms: Reports nausea and vomiting Review of Systems General: Reports: 10 or more systems reviewed and unremarkable except in HPI and below Const: Reports: fever(s) and chills GI: Reports: nausea and vomiting PFSH ED PFSH: Medical History (Updated 05/16/21 @ 02:50 by DANIKA Stewart) Asthma Chronic migraine History of closed head injury Hyperlipidemia Insomnia Surgical History H/O tubal ligation Hx of cholecystectomy Hx of tonsillectomy Family History Father Cancer Social History Smoking and tobacco status: never smoked Quit status (tobacco): has quit using tobacco Alcohol intake: never Desire information about alcohol rehabilitation?: No Desire information about substance/drug rehabilitation?: No History of recent travel: No Current gender identity: Female Female Reproductive History: Spontaneous abortions: No Physical Exam Const: COMMON NORMALS: no acute distress and patient oriented x3 GENERAL APPEARANCE: cooperative HENMT: COMMON NORMALS: normocephalic, TM's normal bilaterally and Normal external nose present HEAD & SCALP: normal to inspection and normocephalic NOSE: Normal external nose present TYMPANIC MEMBRANE: TM's normal bilaterally MOUTH: Normal oral and palatal mucosa present THROAT: posterior oropharynx normal Eye: GENERAL EYE: appearance normal, both eyes and all related structures Neck/C-Spine: COMMON NORMALS: full ROM Lymph: LYMPHATIC: no lymphadenopathy noted Chest: COMMONS NORMALS: normal inspection of the chest Resp: COMMON NORMALS: normal respiratory effort EFFORT & INSPECTION: Yes able to speak in complete sentences Cardio: COMMON NORMALS: regular rate and regular rhythm RATE: regular rate RHYTHM: regular rhythm GI: COMMON NORMALS: Soft to palpation AUSCULTATION: Yes normoactive bowel sounds PALPATION: Yes Soft to palpation and Yes Tenderness to palpation pres ent (GI) (mild) : COMMON NORMALS: Yes no CVA tenderness BLADDER/KIDNEY EXAM: Yes no CVA tenderness Back/Pelvis: COMMON NORMALS: no CVA tenderness and thoracic and lumbar spine normal to inspection Extremity: COMMON NORMALS: normal to inspection Neuro: COMMON NORMALS: patient oriented x3 and moves all extremities Psych: COMMON NORMALS: mental status grossly normal and cooperative Skin: COMMON NORMALS: no rashes or lesions noted GENERAL SKIN EXAM: no rashes or lesions noted Course Vital Signs: Vital signs: Vital Signs Temperature 98.4 F 05/16/21 02:52 Pulse Rate 104 H 05/16/21 02:52 Respiratory Rate 16 05/16/21 02:52 Blood Pressure 111/67 05/16/21 02:52 Pulse Oximetry 99 05/16/21 02:52 MDM - General Adult MDM Narrative: Medical decision making narrative: 51-year-old female comes in today with complaints of nausea vomiting and fever starting this morning. On exam patient had some tenderness in the midepigastric in the suprapubic area. Skin was warm and dry. Vital signs noted a fever of 101 with some tachycardia and respirations of 20. Blood pressure was normal. Patient did have a history of surgery 2 weeks ago. Differential diagnosis includes but not limited to gastroenteritis, sepsis, bowel obstruction, UTI, surgical abscess. Laboratory values noted a white blood cell count of 16,000, CMP was unremarkable, urinalysis was unremarkable. CT of the abdomen pelvis did note a small fluid collection at the vaginal cuff that was approximately 30 x 10 x 12 mm. Patient also had some signs of gastroenteritis on exam. Patient was given Zosyn 3.375 g and 2-1/2 L of IV fluids. Patient initial blood pressure did drop to 88/50 which prompted the treatment with the IV fluids and antibiotic. Patient had recovery of the blood pressure. I then discussed this with Dr. Bustamante who recommended we talk to patient surgeon for further consultation due to abnormal CT. Dr. Lopez was not manager utilization review I talked to Dr. Quiñones who is covering for [employer] at [facility]. She did not feel that the collection of fluid would cause that significant of a response with the patient. Recommended that we continue treatment with Zofran for nausea and vomiting and have patient follow-up with Dr. Lopez on Monday. Patient was much improved after IV fluids suggesting that patient most likely had dehydration secondary to gastroenteritis. Patient was discharged with prescription for Zofran and recommendations for follow-up or return to the ER. Lab Data: Labs: Lab Results 05/15/21 05/15/21 05/15/21 Range/Units 22:40 22:40 22:40 WBC 16.7 H (4.0-10.0) 10^3/ uL RBC 4.69 (4.1-5.3) 10^6/u L Hgb 12.3 (11.5-15.3) g/dL Hct 38.6 (37.0-47.0) % MCV 82.3 (81-99) fl MCH 26.2 L (28.0-34.0) pg MCHC 31.9 (30.0-36.0) g/dL RDW 14.4 (12.1-15.1) % Plt Count 471 H (130-400) 10^3/c mm MPV 10.9 H (7.4-10.4) fL Neut % (Auto) 70.4 % Lymph % (Auto) 22.2 % Harding % (Auto) 6.1 % Eos % (Auto) 0.4 % Baso % (Auto) 0.2 % Neut # (Auto) 11.76 H (1.8-7.7) 10^3/u L Lymph # (Auto) 3.7 (0.8-4.8) 10^3/u L Harding # (Auto) 1.0 H (0.2-0.9) 10^3/u L Eos # (Auto) 0.1 (0.0-0.8) 10^3/u L Baso # (Auto) 0.0 (0.0-0.1) 10^3/u L Nucleated RBC % (a uto) 0 % Nucleated RBCs # 0.0 /100WBC Sodium 135 L (136-145) mmol/L Potassium 4.1 (3.5-5.1) mmol/L Chloride 98 (98-107) mmol/L Carbon Dioxide 24 (22-29) mmol/L Anion Gap 17.1 (5-19) BUN 20 (6-20) mg/dL Creatinine 0.9 (0.5-0.9) mg/dL GFR Calculation 66.3 L (90-130) mL/min Glucose 90 (65-115) mg/dL Calculated Osmolal ity 282 L (285-295) mOsm/k g Lactic Acid (0.5-2.2) mmol/L Calcium 9.0 (8.5-10.5) mg/dL Total Bilirubin 0.3 (0.15-1.2) mg/dL AST 12 (0-32) U/L ALT 16 (0-33) U/L Alkaline Phosphata se 112 H (35-105) IU/L Total Protein 7.1 (6.6-8.7) g/dL Albumin 3.8 (3.5-5.2) g/dL Globulin 3.3 (1.3-4.6) g/dL Lipase 38 (13-60) U/L Urine Color Yellow (Yellow) Urine Appearance Clear (CLEAR) Urine pH 7 (5-7) Ur Specific Gravit y 1.005 (1.005-1.030) Urine Protein Neg (Negative) Urine Glucose (UA) Norm (Normal) Urine Ketones Negative (Negative) Urine Blood Neg (Negative) Urine Nitrate Negative (Negative) Urine Bilirubin Neg (Negative) Urine Urobilinogen Norm (Negative) mg/dL Ur Leukocyte Rose ase Trace H (Negative) Urine RBC 0-4 H (0-2) /hpf Urine WBC 0-4 H (0-5) /hpf Ur Squamous Epith Cells 0-4 H (0-5) /hpf Amorphous Sediment Not Reportable Urine Bacteria Trace (NONE) /hpf 05/15/21 Range/Units 22:40 WBC (4.0-10.0) 10^3/ uL RBC (4.1-5.3) 10^6/u L Hgb (11.5-15.3) g/dL Hct (37.0-47.0) % MCV (81-99) fl MCH (28.0-34.0) pg MCHC (30.0-36.0) g/dL RDW (12.1-15.1) % Plt Count (130-400) 10^3/c mm MPV (7.4-10.4) fL Neut % (Auto) % Lymph % (Auto) % Harding % (Auto) % Eos % (Auto) % Baso % (Auto) % Neut # (Auto) (1.8-7.7) 10^3/u L Lymph # (Auto) (0.8-4.8) 10^3/u L Harding # (Auto) (0.2-0.9) 10^3/u L Eos # (Auto) (0.0-0.8) 10^3/u L Baso # (Auto) (0.0-0.1) 10^3/u L Nucleated RBC % (a uto) % Nucleated RBCs # /100WBC Sodium (136-145) mmol/L Potassium (3.5-5.1) mmol/L Chloride (98-107) mmol/L Carbon Dioxide (22-29) mmol/L Anion Gap (5-19) BUN (6-20) mg/dL Creatinine (0.5-0.9) mg/dL GFR Calculation (90-130) mL/min Glucose (65-115) mg/dL Calculated Osmolal ity (285-295) mOsm/k g Lactic Acid 1.9 (0.5-2.2) mmol/L Calcium (8.5-10.5) mg/dL Total Bilirubin (0.15-1.2) mg/dL AST (0-32) U/L ALT (0-33) U/L Alkaline Phosphata se (35-105) IU/L Total Protein (6.6-8.7) g/dL Albumin (3.5-5.2) g/dL Globulin (1.3-4.6) g/dL Lipase (13-60) U/L Urine Color (Yellow) Urine Appearance (CLEAR) Urine pH (5-7) Ur Specific Gravit y (1.005-1.030) Urine Protein (Negative) Urine Glucose (UA) (Normal) Urine Ketones (Negative) Urine Blood (Negative) Urine Nitrate (Negative) Urine Bilirubin (Negative) Urine Urobilinogen (Negative) mg/dL Ur Leukocyte Rose ase (Negative) Urine RBC (0-2) /hpf Urine WBC (0-5) /hpf Ur Squamous Epith Cells (0-5) /hpf Amorphous Sediment Urine Bacteria (NONE) /hpf Discharge Plan Discharge Patient Disposition: Home Clinical Impression: Abnormal CT scan Nausea & vomiting Qualifiers: Vomiting type: unspecified Vomiting Intractability: non-intractable Qualified Code(s): R11.2 - Nausea with vomiting, unspecified Fever Qualifiers: Fever type: unspecified Qualified Code(s): R50.9 - Fever, unspecified Condition: Stable Prescriptions: Continued ondansetron 4 mg tablet,disintegrating 4 mg PO Q6H PRN (Reason: nausea and vomiting) Qty: 12 RF: 0 No Action ibuprofen 800 mg tablet 800 mg PO TID RF: 0 albuterol sulfate 90 mcg/actuation HFA aerosol inhaler 2 puff inhalation Q6H PRN (Reason: shortness of breath or wheezing) Qty: 8.5 RF: 0 azithromycin 250 mg tablet See Rx Instructions PO .COMPLEX Qty: 6 RF: 0 [id number] [Bromfed DM] 2-30-10 mg/5 mL syrup 7.5 ml PO Q6H PRN (Reason: cold symptoms) Qty: 160 RF: 0 dexamethasone 2 mg tablet 6 mg PO DAILY 8 Days Qty: 24 RF: 0 triamcinolone acetonide 0.1 % cream 1 applic topical BID Qty: 28.4 RF: 0 Discharge Orders: Discharge ED (Routine); Ordered 05/16/21 Ordered By: Federico Escalona Referrals: Adri Vazquez MD [Primary Care Provider] - Discharge Diet: Usual diet Discharge Activity: Increase activity as tolerated Patient Instructions: Gastroenteritis (ED), Opioid Safety Activity Restrictions/Additional Instructions: Home and rest. Drink plenty of fluids. Use Zofran as needed for nausea and vomiting. Use acetaminophen or ibuprofen for pain and fever. Follow-up with Dr. Lopez, inhalation therapy aides teacher, on Monday to schedule a new follow-up appointment for further evaluation of abnormal CT. Return to the ER for persistent or worsening symptoms. Stay on a clear liquid diet until your nausea has improved and then increase diet slowly over the next 24 to 48 hours. Coding Level of Care Code ED Intern Product Marketing Manager for Nettie Fwd Exam Comprehensive
--- NOTE | 2021-05-15 22:27 | CTR_ITS ---
PROCEDURE INFORMATION: Exam: CT Abdomen And Pelvis With Contrast Exam date and time: 05/15/2021 10:27 PM Age: 51 years old Clinical indication: Abdominal pain; Generalized; Prior surgery; Surgery date: <1 month; Surgery type: Hyst; Additional info: Abd tenderness, fever, recent hysterectomy TECHNIQUE: Imaging protocol: Computed tomography of the abdomen and pelvis with contrast. Radiation optimization: All CT scans at this facility use at least one of these dose optimization techniques: automated exposure control; mA and/or kV adjustment per patient size (includes targeted exams where dose is matched to clinical indication); or iterative reconstruction. Contrast material: OMNI 300; Contrast volume: 95 ml; Contrast route: INTRAVENOUS (IV); COMPARISON: CT abdomen pelvis w con* [id number] 04/06/2016 11:31 PM RADIATION DOSE METRICS: Total DLP (mGy-cm): 1636.66 FINDINGS: Lungs: The lung bases are clear. Liver: Unremarkable. Gallbladder and bile ducts: Prior cholecystectomy, no significant biliary tree dilation. Pancreas: Unremarkable. Spleen: Unremarkable. Adrenal glands: Unremarkable. Kidneys and ureters: Unremarkable. Stomach and bowel: 2 cm duodenal diverticulum, slightly larger than on the prior exam. A few proximal small bowel loops are fluid-filled and borderline prominent in size, but the overall appearance is not suggestive of significant small bowel obstruction at this time. This appearance could be secondary to some form of gastroenteritis. Please correlate clinically. There are no CT findings to strongly suggest diverticulitis. Appendix: The appendix is not identified with certainty, however no pericecal inflammatory changes are seen. Intraperitoneal space: No free air, or ascites. Vasculature: No evidence for abdominal aortic aneurysm. Lymph nodes: No retroperitoneal adenopathy. Urinary bladder: Unremarkable as visualized. Reproductive: Prior hysterectomy. Small 30 x 10 x 12 mm gas and fluid collection in the region of the vaginal cuff, containing only a minimal amount of fluid at this time. Possibilities would include postoperative abscess and hematoma. Gas in the collection might raise suspicion for infection/abscess, although the minimal amount of fluid and lack of surrounding the karrie changes would be somewhat unusual. Possibility of connection with the vagina might be considered. No other definite pelvic mass or fluid collection. Bones/joints: No significant acute finding. Soft tissues: No significant acute finding. CT/CT abdomen pelvis w con* [id number] IMPRESSION: 1. Small 30 x 10 x 12 mm gas and fluid collection in the region of the vaginal cuff, containing only a minimal amount of fluid at this time. Please see above discussion. . 2. A few proximal small bowel loops are fluid-filled and borderline prominent in size, see above discussion. This appearance could be secondary to some form of gastroenteritis. 3. No free intraperitoneal air. 4. No CT evidence to suggest appendicitis, however a normal appendix is not definitely visible. 5. Other findings discussed above. Radiation Dose CTDIVOL = (mGy): DLP = 1636.66 (mGy-cm)
[2021-05-15 22:51] LABS: Basophils % 0.2 %; Eosinophils # 0.1 10^3/uL (0.0-0.8); Eosinophils % 0.4 %; Hematocrit 38.6 % (37.0-47.0); Hemoglobin 12.3 g/dL (11.5-15.3); Lymphocytes # 3.7 10^3/uL (0.8-4.8); Lymphocytes % 22.2 %; Mean Corpuscular HGB Conc 31.9 g/dL (30.0-36.0); Mean Corpuscular Hemoglobin 26.2 pg (28.0-34.0); Mean Corpuscular Volume 82.3 fl (81-99); Mean Platelet Volume 10.9 fL (7.4-10.4); Monocytes % 6.1 %; Neutrophils # 11.76 10^3/uL (1.8-7.7); Neutrophils % 70.4 %; Nucleated Red Blood Cells % 0 %; Platelet Count 471 10^3/cmm (130-400); Red Blood Count 4.69 10^6/uL (4.1-5.3); Red Cell Distribution Width 14.4 % (12.1-15.1); White Blood Count 16.7 10^3/uL (4.0-10.0)
[2021-05-15 23:00] VITALS: BP 121/65; PULSE 116; RESP 18; O2SAT 97
[2021-05-15 23:16] LABS: Alanine Aminotransferase 16 U/L (0-33); Albumin Level 3.8 g/dL (3.5-5.2); Alkaline Phosphatase 112 IU/L (35-105); Anion Gap 17.1 (5-19); Aspartate Amino Transferase 12 U/L (0-32); Blood Urea Nitrogen 20 mg/dL (6-20); Carbon Dioxide 24 mmol/L (22-29); Chloride 98 mmol/L (98-107); Creatinine Clr Calc Pharmacy 72.4979; Globulin 3.3 g/dL (1.3-4.6); Glomerular Filtration Rate 66.3 mL/min (90-130); Glucose 90 mg/dL (65-115); Lipase 38 U/L (13-60); Osmolality Calculated 282 mOsm/kg (285-295); Potassium 4.1 mmol/L (3.5-5.1); Sodium 135 mmol/L (136-145); Total Bilirubin 0.3 mg/dL (0.15-1.2); Total Protein 7.1 g/dL (6.6-8.7)
[2021-05-15] MEDS: acetaminophen 500 mg Tablet 1000 MG PO (23:17)
[2021-05-15] MEDS: ondansetron 2 mg/ML SDV 2 mL 4 MG IVP (23:17)
[2021-05-15] MEDS: sodium chloride 0.9% 1,000 ML 999 ML IV (23:17)
[2021-05-15 23:21] LABS: Add Urine Microscopic? YES; Bilirubin Urine Neg (Negative); Blood Urine Neg (Negative); Glucose Urine UA Norm (Normal); Ketones Urine Negative (Negative); Leukocyte Esterase Urine Trace (Negative); Nitrate Urine Negative (Negative); Protein Urine Neg (Negative); Specific Gravity, Urine 1.005 (1.005-1.030); Urine Appearance Clear (CLEAR); Urine Color Yellow (Yellow); Urobilinogen Urine Norm (Negative); pH Urine 7 (5-7)
[2021-05-15 23:29] LABS: RBC Urine 0-4 /hpf (0-2); Squamous Epithelial Cell Urine 0-4 /hpf (0-5); WBC Urine 0-4 /hpf (0-5)
[2021-05-15 23:30] LABS: Add Urine Culture? No; Bacteria Urine TRACE /hpf
[2021-05-16] VITALS: BP 98/59; PULSE 123; RESP 18; TEMP 39.1; O2SAT 96
[2021-05-16] MEDS: iohexol 300 mg/mL 100 mL Btl IV (00:28)
[2021-05-16 00:32] LABS: Lactic Sepsis W/Reflex 1.9 mmol/L (0.5-2.2)
[2021-05-16] MEDS: sodium chloride 0.9% 500 ML 999 ML IV (00:45)
[2021-05-16 01:04] VITALS: BP 88/50; PULSE 106; RESP 16; O2SAT 94
[2021-05-16] MEDS: sodium chloride 0.9% 1,000 ML 999 ML IV (01:21)
[2021-05-16] MEDS: piperacillin-tazobactam 3.375 GM in sodium chloride 0.9% (plus) 50 ML IV (01:56)
[2021-05-16 02:52] VITALS: BP 111/67; PULSE 104; RESP 16; TEMP 36.9; O2SAT 99
[2021-05-16 03:02] VITALS: BP 111/67; PULSE 104; RESP 16; O2SAT 98
== END 2021-05-16 04:07 | disposition home or self-care (01) ==
PROVIDERS: Emergency Provider Nurse Practitioner Family; PCP Family Medicine
DX: R11.2 Nausea with vomiting, unspecified (principal); R50.9 Fever, unspecified; R93.5 Abnormal findings on diagnostic imaging of other abdominal regions, including retroperitoneum; E78.5 Hyperlipidemia, unspecified; Z87.891 Personal history of nicotine dependence
CPT/HCPCS: 74177; 80053; 81001; 83605; 83690; 85025; 87040; 96361; 96365; 96375; 99284; J2405; J2543; J7030; J7040; Q9967

== ENCOUNTER 2021-05-20 10:46 | Day surgery (SDC) | payer MEDICAID, SELFPAY ==
[2021-05-19 10:39] VITALS: BMI 36.7
[2021-05-20] VITALS (8 sets, daily range): BP systolic 116–135; BP diastolic 77–98; PULSE 76–107; RESP 17–22; TEMP 36.1–36.8; O2SAT 93–100
[2021-05-20] MEDS: sodium chloride 0.9% 1,000 ML 30 ML IV (11:32)
--- NOTE | 2021-05-20 11:56 | ANES.PREANE2 ---
Pre-Anesthetic Assessment Pre-Anesthetic Assessment: Height/Weight: Height 1.52 m Weight 85.275 kg Temp Pulse Resp BP Pulse Ox 97 F L 76 18 116/84 100 05/20/21 11:18 05/20/21 11:18 05/20/21 11:18 05/20/21 11:18 05/20/21 11:18 Preop Diagnosis: Knee Medial meniscal tear, degenerative joint disease left Proposed Procedure: Operation Date: 05/20/21 12:45 Proposed Procedures p left knee arthroscopy/ 09140 m17.12(Left) - Obinna Lorenzo MD Familial anesthetic complications: None Was Beta Lyla taken within 24 hours: N/A Was Clonidine taken within 24 hours: N/A Last intake: Intake Last Liquid Date 05/20/21 Last Liquid Time 08:00 Last Solid Date 05/19/21 Last Solid Time 22:00 Social: Social History: No alcohol and No tobacco Exam: Pre-Anes Outpt Exam: alert, oriented x 3, clear to auscultation bilaterally and regular rate & rhythm Airway: Cervical ROM: WNL MP: 3 Dentition: Full Pulmonary: Pulmonary: Asthma Metabolic: Metabolic: Hyperlipidemia and Morbid obesity Anesthetic Plan: ASA status: 3 Anesthesia: General Risk of > 500 ml blood loss (7ml/kg in children): No Meds/Allergies Current Medications: Current Medications Generic Name Dose Route Start Last Admin Trade Name Freq PRN Reason Stop Dose Admin Sodium Chloride 1,000 mls @ 30 ml s/hr 05/20/21 11:00 05/20/21 11:32 Sodium Chloride 0.9% IV 05/21/21 10:59 30 mls/hr .Q24H MAGNOLIA Administration PFSH Anesthesia PFSH: Medical History (Updated 05/16/21 @ 02:50 by DANIKA Stewart) Asthma Chronic migraine History of closed head injury Hyperlipidemia Insomnia Surgical History H/O tubal ligation Hx of cholecystectomy Hx of tonsillectomy Family History Father Cancer Social History Smoking and tobacco status: never smoked Quit status (tobacco): has quit using tobacco Alcohol intake: never Desire information about alcohol rehabilitation?: No Desire information about substance/drug rehabilitation?: No History of recent travel: No Current gender identity: Female Female Reproductive History: Spontaneous abortions: No Data Anesthesia Cardiac Studies: No Data to Display
--- NOTE | 2021-05-20 13:24 | P.HP_ITS ---
Same Day Surgery H&P Indication for Procedure/HPI DATE OF PROCEDURE: May 20, 2021 CHIEF COMPLAINT/INDICATIONFOR SURGICAL PROCEDURE: 51-year-old female with knee pain swelling and mechanical symptoms and an MRI suggesting meniscal tearing as well as some degree of osteoarthritis. She failed reasonable conservative measures including rest, activity modification, anti-inflammatories, and corticosteroid injections. She has been counseled as to the limitations of arthroscopy and in the presence of degenerative changes but wishes to proceed with arthroscopic treatment PREOP DIAGNOSIS: Knee Medial meniscal tear, degenerative joint disease left PLANNED PROCEDRUE: Operation Date: 05/20/21 12:45 Proposed Procedures p left knee arthroscopy/ 89755 m17.12(Left) - Obinna Lorenzo MD Medications/Allergies* Home Medications Medication Instructions Recorded Confirmed Type ibuprofen 800 mg tablet 800 mg PO TID PRN 11/29/20 05/20/21 History Allergies/Adverse Reactions Allergy/AdvReac Type Severity Reaction Status Date / Time gabapentin Allergy ADR-Halluci Verified 05/15/21 22:18 nating oxycodone Allergy hives Verified 05/15/21 22:18 Current Medications: Generic Name Dose Route Start Last Admin Trade Name Freq PRN Reason Stop Dose Admin Sodium Chloride 1,000 mls @ 30 mls/hr 05/20/21 11:00 05/20/21 11:32 Sodium Chloride 0.9% IV 05/21/21 10:59 30 mls/hr .Q24H MAGNOLIA Administration Pertinent History/Comorbid Conditions* Medical History (Updated 05/16/21 @ 02:50 by DANIKA Stewart) Asthma Chronic migraine History of closed head injury Hyperlipidemia Insomnia Surgical History (Updated 11/11/19 @ 15:31 by Adri Vazquez MD) H/O tubal ligation Hx of cholecystectomy Hx of tonsillectomy Family History (Updated 10/06/19 @ 16:34 by Selina Vásquez LPN) Cancer Father Social History Smoking and tobacco status: never smoked Quit status (tobacco): has quit using tobacco Alcohol intake: never Desire information about alcohol rehabilitation?: No Desire information about substance/drug rehabilitation?: No History of recent travel: No Current gender identity: Female Pertinent Exam Findings alert, oriented x 3, clear to auscultation bilaterally, regular rate & rhythm and operative site marked Recommendations Surgery/Procedure today Coding Level of Care Code Acute Lagging Machine Operator for Nettie Nayak
[2021-05-20] MEDS: morphine 4 mg/mL SDV 1 mL 8 MG XX (13:49)
--- NOTE | 2021-05-20 14:21 | P.OP_ITS ---
Operative Report Date of procedure: May 20, 2021 Pre-op Diagnosis: Knee Medial meniscal tear, degenerative joint disease left Post-op diagnosis: same Post-op Findings: Degenerative tear left medial meniscus, grade IV chondromalacia medial femoral condyle and medial tibial plateau Procedure Done: Arthroscopic left medial meniscectomy, chondroplasty left medial femoral condyle Pathology: none sent Surgeon: Obinna Lorenzo Anesthesia: General Estimated blood loss (mL): 10 Complications: None Findings: Patient had complex degenerative tearing involving perhaps 70% of the posterior medial meniscus. She had thinning with spotty exposed subchondral bone of the medial femoral condyle an area of full-thickness cartilage loss over the far medial tibial plateau. Her lateral patellofemoral compartments were relatively healthy Condition: stable Disposition: PACU Procedure: The patient was taken to the operating room and given a general anesthesia. She was given 2 g of Ancef. She is prepped and draped in the supine position with a tourniquet on the left thigh. The tourniquet was never inflated. The knee was infiltrated with 30 cc of 0.5% Marcaine with epi and 10 mg of morphine. The knee was entered through the standard inferior and medial and inferior lateral portal. The diagnostic portion arthroscopy was performed. Initial attention was paid to the medial meniscus. Utilizing an incisor shaver unstable flaps were debrided from the medial meniscus. The rim was cleaned up with the Marc and Nephew Werewolf cautery leaving approximately 20% of the meniscus remaining. Unstable flaps and fissures over the medial femoral condyle were lightly debrided back with the Marc [employer] Nephew Werewolf probe. Full- thickness cartilage loss of the tibia was relatively stable and no debridement was beneficial there. The knee was brought into a [id number] position the lateral compartment inspected and found to be healthy. There is some generalized fraying about the patella that was not thought to benefit from additional debridement. The knee was irrigated with saline. Portals were closed with 3-0 Prolene. Sterile dressings were applied. The patient was extubated taken recovery in stable condition.
[2021-05-20] MEDS: fentaNYL 50 mcg/mL INJ 2mL IVP (14:35)
--- NOTE | 2021-05-20 19:07 | ANE.PACU2 ---
Inpatient post-anesthesia follow up: Airway intact: Yes Vital signs: Temperature 97.6 F Pulse Rate 91 Respiratory Rate 18 Blood Pressure 135/77 Pulse Oximetry 99 Oxygen Delivery Me thod Room Air Oxygen Flow Rate 8 Fraction of Inspir ed Oxygen Hydration adequate: Yes Nausea and vomiting: No Pain level: 2 Mental status: Baseline
== END 2021-05-20 15:40 | disposition home or self-care (01) ==
PROVIDERS: PCP Family Medicine; Visit Provider Orthopaedic Surgery
PROC: (CPT 29870; principal; 2021-05-20 12:45)
DX: S83.242A Other tear of medial meniscus, current injury, left knee, initial encounter (principal); X58.XXXA Exposure to other specified factors, initial encounter; M17.12 Unilateral primary osteoarthritis, left knee; J45.909 Unspecified asthma, uncomplicated; E78.5 Hyperlipidemia, unspecified; E66.01 Morbid (severe) obesity due to excess calories; Z68.36 Body mass index [BMI] 36.0-36.9, adult
CPT/HCPCS: 29881; 96365; J0690; J2270; J3010; J3490; J7030

== ENCOUNTER 2021-08-02 12:40 | Emergency (ER) | payer MEDICAID, SELFPAY ==
[2021-08-02 13:16] VITALS: BP 135/84; PULSE 96; RESP 18; TEMP 36.8; O2SAT 96; BMI 35.6
--- NOTE | 2021-08-02 14:01 | XR_ITS ---
WS: [id number] Exam: XR chest 1V portable [id number] Date/Time of Exam: 08/02/2021 2:01 PM Reason For Exam: cough Comparison 05/21/2019. Findings: The lungs are clear and fully expanded. Costophrenic angles are sharp. No infiltrates. Bronchovascula r relief appears normal. Cardiac silhouette is unremarkable. Bony elements are intact. XR/XR chest 1V portable [id number] IMPRESSION: Unremarkable chest radiograph.
== END 2021-08-02 17:34 | disposition left against medical advice (07) ==
LOC: ER 13:08
PROVIDERS: Emergency Provider Family Medicine; PCP Family Medicine
DX: Z53.21 Procedure and treatment not carried out due to patient leaving prior to being seen by health care provider (principal)
CPT/HCPCS: 71045

== ENCOUNTER 2022-02-13 17:20 | Emergency (ER) | payer MEDICAID, SELFPAY ==
[2022-02-13 17:28] VITALS: BP 140/84; PULSE 101; RESP 14; TEMP 36.6; O2SAT 96; BMI 33.2
--- NOTE | 2022-02-13 17:56 | ED_ITS ---
HPI - Skin/Abscess/Foreign Bdy General: Chief complaint: General Medical Stated complaint: Unknown bite numb foot rash, SOB Time Seen by Provider: 02/13/22 17:35 Source: patient Mode of arrival: ambulatory Limitations: no limitations History of Present Illness: Patient is a nice 51-year-old female who presents to ED today with a complaint of a possible bite/sting to her right lower leg. [place] when she felt something bite/sting her to her right lower leg. She states she looked down but did not visualize anything. She states shortly after she felt a little nauseous and short of breath and diz zy but states these have improved upon arriving to the ED. She states bite/sting occurred about 4 hours ago. She has not noticed any redness or swelling around the bite/sting. She is not having any pain. She [place] and feels confident she would have seen a snake bite her. She has no chest pain or difficulty breathing. MD complaint: insect bite/sting Tetanus up to date: yes Location: RLE Severity: mild Relieving factors: none Exacerbating factors: none Associated symptoms: Reports nausea (resolved now); Deny chills, fever(s) or vomiting Treatments prior to arrival: none Review of Systems Const: Denies: fever(s), chills, body aches, fatigue or malaise Eyes: Denies: change in vision or blurry vision Card: Denies: chest pain Resp: Reports: dyspnea (resolved now); Denies: wheezing or stridor GI: Reports: nausea (resolved now); Denies: abdominal pain, vomiting or diarrhea Musc: Reports: neck pain, back pain, extremity pain, extremity swelling, joint pain, joint swelling, joint redness and joint warmth Skin/Breast: Reports: other (bite/sting rand to R LE) Neuro: Reports: dizziness (resolved now); Denies: headache(s), numbness in extremities, weakness in extremities, sensory changes or difficulty walking [facility] PFSH: Medical History Asthma Chronic migraine History of closed head injury Hyperlipidemia Insomnia Surgical History H/O tubal ligation Hx of cholecystectomy Hx of tonsillectomy Family History Father Cancer Denies family history of Diabetes Clotting disorder Bleeding disorder Hypertension Thyroid disease Stroke Social History Smoking and tobacco status: former smoker Quit status (tobacco): has quit using tobacco Alcohol intake: never Desire information about alcohol rehabilitation?: No Desire information about substance/drug rehabilitation?: No History of recent travel: No Current gender identity: Female Female Reproductive History: Para: 7 Spontaneous abortions: No Physical Exam Const: COMMON NORMALS: no acute distress, patient oriented x3, no limitations and alert GENERAL APPEARANCE: cooperative ORIENTATION/CONSCIOUSNESS: Yes awake, Yes oriented to person, Yes oriented to place and Yes oriented to time HENMT: COMMON NORMALS: normocephalic and atraumatic HEAD & SCALP: normal to inspection, normocephalic and atraumatic MOUTH: Normal oral and palatal mucosa present, lip normal and tongue normal Eye: GENERAL EYE: appearance normal, both eyes and all related structures Neck/C-Spine: COMMON NORMALS: supple GENERAL: Yes normal visual inspection Resp: COMMON NORMALS: normal respiratory effort and clear to auscultation bilaterally AUSCULTATION: clear to auscultation bilaterally Cardio: COMMON NORMALS: regular rate and regular rhythm RATE: regular rate RHYTHM: regular rhythm Extremity: COMMON NORMALS: full ROM, capillary refill normal, no joint enlargement, no clubbing, cyanosis or edema, no calf tenderness and no pedal edema GENERAL: Yes normal exam except as noted Legs Right Lower and Feet: 1. 2. patient has two very small (1mm) hemorrhagic pustules (about 0.5cm apart) noted to R lateral ankle area; there is absolutely no swelling or redness present; no tenderness; no streaking Neuro: RUIZ COMA SCALE: document GCS findings Ringold coma scale eye opening: Spontaneous Ruiz coma scale verbal response: Orientated Ruiz coma scale motor response: Obey commands Ruiz coma scale total score: 15 COMMON NORMALS: patient oriented x3, moves all extremities, no focal motor deficits, no sensory deficits noted and gait normal SENSORIUM/ORIENTATION: Yes alert, Yes oriented to person, Yes oriented to place and Yes oriented to time Skin: NARRATIVE SKIN EXAM: see diagram above; otherwise normal skin exam RASHES: no rashes Course 2 Vital Signs: Vital signs: Vital Signs Temperature 97.9 F 02/13/22 17:28 Pulse Rate 101 H 02/13/22 17:28 Respiratory Rate 14 02/13/22 17:28 Blood Pressure 140/84 02/13/22 17:28 Pulse Oximetry 96 02/13/22 17:28 MDM - Skin/Abscess/Foreign Bdy Medicial Decision Making Patient is here for evaluation following a presumed bite/sting of some sort to her right lower leg. She states following incident she did have a little bit of dizziness, shortness of breath, and nausea all of which have resolved upon arrival to ED. On physical exam she does have evidence of a bite/sting but there is absolutely no surrounding redness or swelling or tenderness. Bite/sting happened about 4-5 hours ago. Given location of patient at time of incident [place] I too, feel she would have witnessed a snake if this were the culprit. I guess this is still a possibility but she has no signs/symptoms of envenomation at this time. I discussed with her at length signs/symptoms that should prompt a return to ED visit and she (as well as grandchildren) verbalized understanding. At this time I will allow her to go h ome with strict precautions and instructions for observation. Discharge Plan Discharge Patient Disposition: Home Clinical Impression: Insect bite or sting Condition: Stable Prescriptions: No Action ibuprofen 800 mg tablet 800 mg PO TID PRN (Reason: Pain) 0RF tramadol 50 mg tablet 50 mg PO DAILY PRN (Reason: pain) 30 Days Qty: 30 0RF Maxalt 10 mg tablet 10 mg PO PRN PRN (Reason: migraine headache) Qty: 9 3RF Rx Instructions: may repeat once after 2 hours. Maximum 9 per month ondansetron 4 mg tablet,disintegrating 4 mg PO DAILY PRN (Reason: nausea and vomiting) Qty: 14 0RF Rx Instructions: 340B omeprazole 20 mg capsule,delayed release(DR/EC) 20 mg PO DAILY 90 Days Qty: 90 0RF albuterol sulfate [ProAir HFA] 90 mcg/actuation HFA aerosol inhaler 2 puff inhalation Q6H PRN (Reason: shortness of breath or wheezing) Qty: 8.5 2RF Discharge Orders: Discharge ED (Routine); Ordered 02/13/22 Ordered By: Jazmín Lopez Referrals: Adri Vazquez MD [Primary Care Provider] - Activity Restrictions/Additional Instructions: As we discussed you may monitor symptoms closely. Please seek medical reevaluation for significant redness or swelling surrounding the bite/sting, red streaking up your leg, severe shortness of breath or difficulty breathing, diffuse rash/hives, swelling to your lips or tongue, significant chest pains, or any other concerns you may have. Coding Level of Care Code ED Director Of Informatics for Chg Fwd Exam Comprehensive
== END 2022-02-13 18:13 | disposition home or self-care (01) ==
PROVIDERS: Emergency Provider Physician Assistant; PCP Family Medicine
DX: S80.861A Insect bite (nonvenomous), right lower leg, initial encounter (principal); W57.XXXA Bitten or stung by nonvenomous insect and other nonvenomous arthropods, initial encounter; Y92.828 Other wilderness area as the place of occurrence of the external cause
CPT/HCPCS: 99282

== ENCOUNTER → 2022-05-09 14:17 | Outpatient (BNVA) | payer MEDICAID, SELFPAY | PROVIDERS: PCP Family Medicine; Visit Provider Family Medicine | DX: K29.70 Gastritis, unspecified, without bleeding (principal); G43.709 Chronic migraine without aura, not intractable, without status migrainosus; E78.2 Mixed hyperlipidemia; Z13.1 Encounter for screening for diabetes mellitus; R00.2 Palpitations; M17.12 Unilateral primary osteoarthritis, left knee; J45.20 Mild intermittent asthma, uncomplicated; Z12.39 Encounter for other screening for malignant neoplasm of breast; M79.622 Pain in left upper arm | CPT/HCPCS: 80053; 80061; 83735; 84443; 85025 ==

== ENCOUNTER 2022-05-18 13:24 | Outpatient (CLI) | payer MEDICAID, SELFPAY ==
--- NOTE | 2022-05-18 13:33 | MM_ITS ---
WS: [id number] BILATERAL 3D TOMOSYNTHESIS DIGITAL SCREENING MAMMOGRAPHY WITH CAD CLINICAL INFORMATION: Z12.39 - Encounter for other screening for malignant neop... HISTORY: Screening mammogram. LEFT breast pain COMPARISON: TECHNIQUE: Bilateral CC and MLO views. FINDINGS: Scattered fibroglandular densities bilaterally. Vascular calcification. No suspicious focal mass, asy mmetry, calcifications, or architectural distortion. No evidence of malignancy. MM/[place] [id number] IMPRESSION: BI-RADS: 2-Benign FOLLOW UP: 1 Year Follow-up Recommend return to annual screening mammography.
== END 2022-05-18 13:25 | disposition home or self-care (01) ==
LOC: RAD 13:24
PROVIDERS: PCP Family Medicine; Visit Provider Family Medicine
DX: Z12.31 Encounter for screening mammogram for malignant neoplasm of breast (principal)
CPT/HCPCS: 77063; 77067

== ENCOUNTER → 2023-02-15 10:59 | Outpatient (BNVA) | payer MEDICAID, SELFPAY | PROVIDERS: PCP Family Medicine; Visit Provider Family Medicine | DX: E78.5 Hyperlipidemia, unspecified (principal); I63.9 Cerebral infarction, unspecified; K21.9 Gastro-esophageal reflux disease without esophagitis; M17.12 Unilateral primary osteoarthritis, left knee; M23.304 Other meniscus derangements, unspecified medial meniscus, left knee; E78.2 Mixed hyperlipidemia; I10 Essential (primary) hypertension; J20.9 Acute bronchitis, unspecified; B97.89 Other viral agents as the cause of diseases classified elsewhere; J98.8 Other specified respiratory disorders; R47.9 Unspecified speech disturbances | CPT/HCPCS: 71046; 87400; 87426 ==

== ENCOUNTER → 2023-06-12 15:34 | Outpatient (BNVA) | payer MEDICAID, SELFPAY | PROVIDERS: PCP Family Medicine; Visit Provider Family Medicine | DX: E78.2 Mixed hyperlipidemia (principal); I10 Essential (primary) hypertension; K21.9 Gastro-esophageal reflux disease without esophagitis; M17.12 Unilateral primary osteoarthritis, left knee; M23.304 Other meniscus derangements, unspecified medial meniscus, left knee; H60.92 Unspecified otitis externa, left ear; F51.01 Primary insomnia; M25.562 Pain in left knee; H60.592 Other noninfective acute otitis externa, left ear; Z74.09 Other reduced mobility | CPT/HCPCS: 80053; 80061 ==

== ENCOUNTER → 2023-07-04 12:28 | Outpatient (BNVA) | payer MEDICAID, SELFPAY | PROVIDERS: PCP Family Medicine; Visit Provider Emergency Medicine | DX: J98.8 Other specified respiratory disorders (principal); B97.89 Other viral agents as the cause of diseases classified elsewhere | CPT/HCPCS: 87400; 87426 ==

== ENCOUNTER → 2023-08-24 15:54 | Outpatient (BNVA) | payer MEDICAID, SELFPAY | PROVIDERS: PCP Family Medicine; Visit Provider Emergency Medicine | DX: M25.531 Pain in right wrist (principal); M19.031 Primary osteoarthritis, right wrist | CPT/HCPCS: 73110 ==

== ENCOUNTER 2023-10-26 13:22 | Outpatient (CLI) | payer MEDICAID, SELFPAY ==
--- NOTE | 2023-10-26 13:30 | CT_ITS ---
WS: [id number] CT SINUSES TECHNIQUE: Noncontrast CT of the paranasal sinuses with coronal and sagittal reformatted images. CLINICAL INFORMATION: J01.91 - Acute recurrent sinusitis, unspecified COMPARISON: None. DLP: 364.[address] scans at [facility] use at least one of these dose optimization techniques: automated e xposure control; mA and/or kV adjustment per patient size (includes targeted exams where dose is matc hed to clinical indication); or iterative reconstruction. FINDINGS: Mastoid air cells are well aerated. Mild RIGHT to LEFT nasal septal deviation measuring 2 to 3 mm. No rmal posterior nasopharynx. Normal parapharyngeal fat. Intracranial vascular calcification. Frothy secretions LEFT maxillary sinus compatible with sinusitis. Mucosal thickening in the paranasal sinuses. Partial opacification of the LEFT greater than RIGHT frontoethmoidal recesses. Mucosal thic kening ethmoid air cells. Retention cyst or polyp LEFT sphenoid sinus measuring 10 mm. Opacification of the LEFT greater than RIGHT ostiomeatal units. IMPRESSION: 1. Mild nasal septal deviation measuring 2-3mm 2. LEFT maxillary sinusitis with frothy secretions. 3. Opacification LEFT greater than ostiomeatal units with mucosal thickening. 4. Fluid and mucosal thickening in the LEFT greater than RIGHT frontoethmoidal recesses. Mild polypo id mucosal thickening in the ethmoid air cells. 5. 10 mm retention cyst or polyp LEFT sphenoid sinus. 6. Mastoid air cells are well aerated.
== END 2023-10-26 13:23 | disposition home or self-care (01) ==
PROVIDERS: PCP Family Medicine; Visit Provider Emergency Medicine
DX: J01.01 Acute recurrent maxillary sinusitis (principal); J34.2 Deviated nasal septum
CPT/HCPCS: 70486

== ENCOUNTER → 2023-10-27 12:56 | Outpatient (BNVA) | payer MEDICAID, SELFPAY | PROVIDERS: PCP Family Medicine; Visit Provider Emergency Medicine | DX: B34.9 Viral infection, unspecified (principal); J01.01 Acute recurrent maxillary sinusitis | CPT/HCPCS: 87400 ==

== ENCOUNTER → 2023-11-10 14:23 | Outpatient (BNVA) | payer MEDICAID, SELFPAY | PROVIDERS: PCP Family Medicine; Visit Provider Emergency Medicine | DX: R10.9 Unspecified abdominal pain (principal) | CPT/HCPCS: 80053; 83690; 85025 ==

== ENCOUNTER → 2023-12-06 14:33 | Outpatient (BNVA) | payer MEDICAID, SELFPAY | PROVIDERS: PCP Family Medicine; Visit Provider Family Medicine | DX: M23.304 Other meniscus derangements, unspecified medial meniscus, left knee (principal); M17.12 Unilateral primary osteoarthritis, left knee; E78.2 Mixed hyperlipidemia; I10 Essential (primary) hypertension; J01.01 Acute recurrent maxillary sinusitis; Z01.818 Encounter for other preprocedural examination; J45.20 Mild intermittent asthma, uncomplicated; G43.709 Chronic migraine without aura, not intractable, without status migrainosus | CPT/HCPCS: 80053; 85025; 93005 ==

== ENCOUNTER 2024-04-09 14:56 | Emergency (ER) | payer MEDICAID, SELFPAY ==
[2024-04-09 15:02] VITALS: BP 142/81; PULSE 82; RESP 18; TEMP 36.8; O2SAT 96
[2024-04-09 15:12] VITALS: BP 147/93; PULSE 87; O2SAT 95
[2024-04-09 15:17] LABS: Basophils # 0.1 10^3/uL (0.0-0.1); Eosinophils # 0.3 10^3/uL (0.0-0.8); Eosinophils % 2.9 %; Hematocrit 37.8 % (36-47); Lymphocytes # 3.3 10^3/uL (0.8-4.8); Lymphocytes % 31.4 %; Mean Corpuscular Hemoglobin 27.1 pg (27-33); Mean Corpuscular Volume 84.6 fl (85-98); Mean Platelet Volume 10.6 fL (7.4-10.4); Monocytes # 0.6 10^3/uL (0.2-0.9); Monocytes % 5.6 %; Neutrophils % 58.8 %; Nucleated Red Blood Cells % 0 %; Platelet Count 366 10^3/cmm (157-399); Red Blood Count 4.47 10^6/uL (3.85-5.65); White Blood Count 10.37 10^3/uL (3.29-11.43)
[2024-04-09 15:34] LABS: Alanine Aminotransferase 7 U/L (0-33); Alkaline Phosphatase 146 U/L (35-105); Anion Gap 16.7 (5-19); Aspartate Amino Transferase 11 U/L (0-32); Blood Urea Nitrogen 11 mg/dL (6-20); Calcium 9.4 mg/dL (8.5-10.5); Carbon Dioxide 24 mmol/L (22-29); Chloride 107 mmol/L (98-107); Creatinine Clr Calc Pharmacy 69.6305; Globulin 3.9 g/dL (1.3-4.6); Glomerular Filtration Rate 65.8 mL/min (90-130); Glucose 100 mg/dL (65-115); Lipase 26 U/L (13-60); Osmolality Calculated 295 mOsm/kg (285-295); Potassium 4.7 mmol/L (3.5-5.1); Sodium 143 mmol/L (136-145); Total Bilirubin 0.2 mg/dL (0.15-1.2); Total Protein 7.9 g/dL (6.6-8.7)
--- NOTE | 2024-04-09 15:36 | CTR_ITS ---
PROCEDURE INFORMATION: Exam: CTA Head With Contrast, Arteriography Exam date and time: 04/09/2024 4:11 PM Age: 53 years old Clinical indication: Dizziness and giddiness; Additional info: Dizzy TECHNIQUE: Imaging protocol: Computed tomographic angiography of the head with contrast. Exam focused on the arteries. 3D rendering (Not supervised by radiologist): MIP and/or 3D reconstructed images were created by the technologist. Radiation optimization: All CT scans at this facility use at least one of these dose optimization techniques: automated exposure control; mA and/or kV adjustment per patient size (includes targeted exams where dose is matched to clinical indication); or iterative reconstruction. Contrast material: OMNI 350; Contrast volume: 100 ml; Contrast route: INTRAVENOUS (IV); COMPARISON: CT head wo con* [id number] 05/21/2019 8:26 AM RADIATION DOSE METRICS: Total DLP (mGy-cm): 1043 FINDINGS: ANTERIOR CIRCULATION: Right internal carotid artery: No significant stenosis or aneurysm is seen involving the petrous, cavernous, or supraclinoid right internal caroid artery. Right middle cerebral artery: No occlusion or significant stenosis. No aneurysm. Right anterior cerebral artery: No occlusion or significant stenosis. No aneurysm. Left internal carotid artery: No significant stenosis or aneurysm is seen involving the petrous, cavernous, or supraclinoid left internal caroid artery. Left middle cerebral artery: No occlusion or significant stenosis. No aneurysm. Left anterior cerebral artery: No occlusion or significant stenosis. No aneurysm. POSTERIOR CIRCULATION: Right vertebral artery: Intradural right vertebral artery demonstrates no occlusion or significant stenosis. No aneurysm. Left vertebral artery: Intradural left vertebral artery demonstrates no occlusion or significant stenosis. No aneurysm. Basilar artery: No occlusion or significant stenosis. No aneurysm. Right posterior cerebral artery: No occlusion or significant stenosis. No aneurysm. Left posterior cerebral artery: No occlusion or significant stenosis. No aneurysm. Brain: No acute confluent lobar infarct, acute parenchymal hemorrhage or mass effect. Cerebral ventricles: No ventriculomegaly. Paranasal sinuses: Mucous retention cyst versus polyp in the left sphenoid sinus measuring up to 0.9 cm. Mild opacification of the bilateral ethmoid air cells. Bones/joints: Unremarkable. No acute fracture. Soft tissues: Visualized soft tissues are unremarkable. PROCEDURE INFORMATION: Exam: CTA Neck With Contrast Exam date and time: 04/09/2024 4:11 PM Age: 53 years old Clinical indication: Dizziness and giddiness; Additional info: Dizzy TECHNIQUE: Imaging protocol: Computed tomographic angiography of the neck with contrast. Exam focused on the cervical segments of the vasculature. 3D rendering (Not supervised by radiologist): MIP and/or 3D reconstructed images were created by the technologist. Radiation optimization: All CT scans at this facility use at least one of these dose optimization techniques: automated exposure control; mA and/or kV adjustment per patient size (includes targeted exams where dose is matched to clinical indication); or iterative reconstruction. Contrast material: OMNI 350; Contrast volume: 100 ml; Contrast route: INTRAVENOUS (IV); COMPARISON: CT angio chest PE protcl [id number] 08/28/2018 6:24 AM RADIATION DOSE METRICS: Total DLP (mGy-cm): 1043 FINDINGS: Right common carotid artery: No stenosis. No dissection or occlusion. Right internal carotid artery: Mild calcified plaque is seen involving the right proximal cervical internal carotid artery. No significant stenosis seen by NASCET criteria. No dissection or occlusion. Right external carotid artery: No occlusion or stenosis of the origin. Left common carotid artery: No stenosis. No dissection or occlusion. Left internal carotid artery: Mild calcified and noncalcified plaque is seen involving the left carotid bulb. No significant stenosis seen by NASCET criteria. No dissection or occlusion. Left external carotid artery: No occlusion or stenosis of the origin. Right vertebral artery: No cervical vertebral artery stenosis. No dissection or occlusion. Left vertebral artery: No cervical vertebral artery stenosis. No dissection or occlusion. Soft tissues: Focal filling defect is noted within a segmental pulmonary arterial branch of the right upper lobe best seen on series 8, image 50 compatible with an age-indeterminate pulmonary embolism. Bones/joints: No acute bony abnormality. CT/CT angio headneck* [id number] IMPRESSION: 1. No intracranial large vessel arterial stenosis or occlusion. 2. No acute intracranial abnormality. If symptoms persist, consider further evaluation with MRI, if MRI is clinically safe to obtain. IMPRESSION: 1. No significant cervical arterial stenosis or occlusion. 2. Age-indeterminate pulmonary embolism suspected in a segmental branch of the right upper lobe. REFERENCES: NASCET CRITERIA. The degree of stenosis in the cervical segment of the internal carotid artery is based on NASCET criteria. Normal is no stenosis. Mild is less than 50% stenosis. Moderate is 50-69% stenosis. Severe is 70% to 99% stenosis. Total occlusion is no detectable patent lumen.
--- NOTE | 2024-04-09 15:37 | ED_ITS ---
HPI - Nausea/Vomiting/Diarrhea 2 General: Chief complaint: Nausea/Vomiting/Diarrhea Stated complaint: N/V/D Time Seen by Provider: 04/09/24 15:13 Source: patient and EMS Mode of arrival: EMS Limitations: no limitations History of Present Illness: 53-year-old female states over the last 5 days she has been having nausea vomiting along with vertigo she states been intermittent in nature states that over the last 5 days she has had severe vertigo with movement and trying to walk. States at rest her symptoms improve she denies any pain anywhere denies any headache denies abdominal pain. Associated nausea: Yes Associated symtoms: Reports nausea; Denies chest pain, dysuria or headache(s) Review of Systems 2 Const: Denies: fever(s), chills, body aches or change in appetite Eyes: Denies: blurry vision or eye discomfort ENMT: Denies: throat pain or dental pain Card: Denies: chest pain Resp: Denies: dyspnea GI: Reports: nausea and vomiting; Denies: abdominal pain or diarrhea : Denies: dysuria Musc: Denies: neck pain or back pain Skin/Breast: Denies: rash Neuro: Reports: vertigo; Denies: headache(s) PFSH ED 2 PFSH: Medical History Neoplasm of brain Seasonal allergies Recurrent acute sinusitis Impaired mobility and endurance Insomnia Chronic migraine History of closed head injury Hyperlipidemia Asthma Surgical History Hx of tonsillectomy H/O tubal ligation Hx of cholecystectomy Family History Father Cancer Denies family history of Diabetes Clotting disorder Bleeding disorder Hypertension Thyroid disease Stroke Social History Smoking and tobacco/nicotine status: former use of tobacco/nicotine Quit status (tobacco/nicotine): has quit using Alcohol intake: never Substance/Drug Use: never Current gender identity: Female Female Reproductive History: Para: 7 Spontaneous abortions: No Physical Exam 2 Const: COMMON NORMALS: no acute distress, patient oriented x3 and healthy appearing HENMT: COMMON NORMALS: normocephalic and atraumatic HEAD & SCALP: n ormocephalic and atraumatic Eye: COMMON NORMALS: Equal, round and reactive pupils present and EOMs intact bilaterally PUPIL: Yes Equal, round and reactive pupils present OTHER: No nystagmus noted Neck/C-Spine: COMMON NORMALS: full ROM and supple Chest: COMMONS NORMALS: normal inspection of the chest and normal palpation of entire chest wall Resp: COMMON NORMALS: normal respiratory effort, No retractions, No use of accessory muscles and clear to auscultation bilaterally AUSCULTATION: clear to auscultation bilaterally Cardio: COMMON NORMALS: regular rate, regular rhythm and No murmurs present (Cardio) RATE: regular rate RHYTHM: regular rhythm GI: COMMON NORMALS: Normal to inspection, nondistended, normoactive bowel sounds present, Soft to palpation, non-tender and no masses PALPATION: Yes Soft to palpation Extremity: COMMON NORMALS: normal to inspection and full ROM Neuro: COMMON NORMALS: patient oriented x3, moves all extremities and no focal motor deficits Psych: COMMON NORMALS: mental status grossly normal, Normal thought process present and cooperative THOUGHT PROCESS: Normal thought process present Skin: COMMON NORMALS: no rashes or lesions noted and no wounds GENERAL SKIN EXAM: no rashes or lesions noted Course 2 Vital Signs: Vital signs: Vital Signs Temperature 98.3 F 04/09/24 15:02 Pulse Rate 88 04/09/24 16:56 Respiratory Rate 18 04/09/24 15:02 Blood Pressure 136/73 04/09/24 16:56 Pulse Oximetry 96 04/09/24 16:56 Oxygen Delivery Me thod Room Air 04/09/24 16:56 MDM - Nausea/Vomiting/Diarrhea Medical Decision Making Patient presents here with vertigo that is much improved here she is able to ambulate here without difficulty states her symptoms have resolved she has no signs of a stroke imaging here is normal we will prescribe her Antivert along with Zofran she is to follow-up with PCP and return if worsening she understands agrees to plan. Medical Records I reviewed the patient's medical records. Lab Data I reviewed the patient's lab results. 04/09/24 15:12 04/09/24 15:12 Radiology Impressions Head/Neck CTA 04/09/24 15:36 IMPRESSION: 1. No intracranial large vessel arterial stenosis or occlusion. 2. No acute intracranial abnormality. If symptoms persist, consider further evaluation with MRI, if MRI is clinically safe to obtain. IMPRESSION: 1. No significant cervical arterial stenosis or occlusion. 2. Age-indeterminate pulmonary embolism suspected in a segmental branch of the right upper lobe. REFERENCES: NASCET CRITERIA. The degree of stenosis in the cervical segment of the internal carotid artery is based on NASCET criteria. Normal is no stenosis. Mild is less than 50% stenosis. Moderate is 50-69% stenosis. Severe is 70% to 99% stenosis. Total occlusion is no detectable patent lumen. ADDENDUM: 04/09/24 1714 ADDENDUM: THIS REPORT CONTAINS FINDINGS THAT MAY BE CRITICAL TO PATIENT CARE. The findings were verbally communicated via telephone conference with SRINATH POOL at 5:12 PM CDT on 04/09/2024. The findings were acknowledged and understood. Chest CTA 04/09/24 17:12 IMPRESSION: 1. Previously seen filling defect within a segmental branch of the right upper lobe on CTA head/neck dated 04/09/2024 is not clearly identified on current study and may have been artifactual. No definite filling defects identified within the pulmonary arteries to suggest pulmonary embolism. 2. No focal lung consolidation. 3. No thoracic aortic aneurysm or dissection. 4. Nonspecific borderline mediastinal and hilar lymph nodes. Laboratory Results WBC 10.37 10^3/uL (3.29-11.43) 04/09/24 15:12 RBC 4.47 10^6/uL (3.85-5.65) 04/09/24 15:12 Hgb 12.10 g/dL (11.27-16.99) 04/09/24 15:12 Hct 37.8 % (36-47) 04/09/24 15:12 MCV 84.6 fl (85-98) L 04/09/24 15:12 MCH 27.1 pg (27-33) 04/09/24 15:12 MCHC 32.0 g/dL (30-55) 04/09/24 15:12 RDW 14.0 % (12.1-15.1) 04/09/24 15:12 Plt Count 366 10^3/cmm (157-399) 04/09/24 15:12 MPV 10.6 fL (7.4-10.4) H 04/09/24 15:12 Neut % (Auto) 58.8 % 04/09/24 15:12 Lymph % (Auto) 31.4 % 04/09/24 15:12 [place] % (Auto) 5.6 % 04/09/24 15:12 Eos % (Auto) 2.9 % 04/09/24 15:12 Baso % (Auto) 1.0 % 04/09/24 15:12 Neut # (Auto) 6.10 10^3/uL (1.8-7.7) 04/09/24 15:12 Lymph # (Auto) 3.3 10^3/uL (0.8-4.8) 04/09/24 15:12 [place] # (Auto) 0.6 10^3/uL (0.2-0.9) 04/09/24 15:12 Eos # (Auto) 0.3 10^3/uL (0.0-0.8) 04/09/24 15:12 Baso # (Auto) 0.1 10^3/uL (0.0-0.1) 04/09/24 15:12 Nucleated RBC % (auto) 0 % 04/09/24 15:12 Nucleated RBCs # 0.0 /100WBC 04/09/24 15:12 Sodium 143 mmol/L (136-145) 04/09/24 15:12 Potassium 4.7 mmol/L (3.5-5.1) 04/09/24 15:12 Chloride 107 mmol/L (98-107) 04/09/24 15:12 Carbon Dioxide 24 mmol/L (22-29) 04/09/24 15:12 Anion Gap 16.7 (5-19) 04/09/24 15:12 BUN 11 mg/dL (6-20) 04/09/24 15:12 Creatinine 0.9 mg/dL (0.5-0.9) 04/09/24 15:12 GFR Calculation 65.8 mL/min (90-130) L 04/09/24 15:12 Glucose 100 mg/dL (65-115) 04/09/24 15:12 Calculated Osmolality 295 mOsm/kg (285-295) 04/09/24 15:12 Calcium 9.4 mg/dL (8.5-10.5) 04/09/24 15:12 Total Bilirubin 0.2 mg/dL (0.15-1.2) 04/09/24 15:12 AST 11 U/L (0-32) 04/09/24 15:12 ALT 7 U/L (0-33) 04/09/24 15:12 Alkaline Phosphatase 146 U/L (35-105) H 04/09/24 15:12 NT-Pro-B Natriuret Pep 830 pg/mL (0-125) H 04/09/24 15:12 Total Protein 7.9 g/dL (6.6-8.7) 04/09/24 15:12 Albumin 4.0 g/dL (3.5-5.2) 04/09/24 15:12 Globulin 3.9 g/dL (1.3-4.6) 04/09/24 15:12 Lipase 26 U/L (13-60) 04/09/24 15:12 All radiology interpretation(s) finalized by discharge Discharge Plan Discharge Patient Disposition: Home Clinical Impression: Vertigo Condition: Stable Prescriptions: New ondansetron 4 mg tablet,disintegrating 4 mg PO Q6H PRN (Reason: nausea and vomiting) Qty: 14 0RF meclizine 50 mg tablet 50 mg PO BID PRN (Reason: dizziness) Qty: 14 0RF No Action acetaminophen [Tylenol] 325 mg capsule 325 mg PO QID PRN tizanidine 4 mg capsule 4 mg PO BID PRN metoprolol succinate 25 mg tablet extended release 24 hr 25 mg PO DAILY 90 Days Qty: 90 1RF [id number] 3.5-10,000-1 mg/mL-unit/mL-% drops,suspension 4 drp otic (ear) Q8H 10 Days Qty: 10 0RF Rx Instructions: left ear albuterol sulfate [ProAir HFA] 90 mcg/actuation HFA aerosol inhaler 2 puff inhalation Q6H PRN (Reason: shortness of breath or wheezing) Qty: 8.5 5RF tramadol 50 mg tablet 50 mg PO DAILY PRN (Reason: pain) 30 Days Qty: 30 0RF Discharge Orders: Discharge ED (Routine); Ordered 04/09/24 Ordered By: Srinath Pool Referrals: Adri Vazquez MD [Primary Care Provider] - 4-7 days Discharge Diet: Advance as tolerated Discharge Activity: Resume usual activity Patient Instructions: Vertigo (ED) Coding Level of Care Code ED Gis Geographer for Nettie Nayak NIH stroke score NIHSS Level Of Consciousness - 1a: 0 Level Of Consciousness Questions - 1b: Both Correct Level Of Consciousness Commands - 1c: Both Correct Best Gaze - 2: Normal Visual Joe - 3: No Visual Loss Facial Palsy - 4: Normal Motor Arm Right - 5: No Drift Motor Arm Left - 5: No Drift Motor Leg Right - 6: No Drift Motor Leg Left - 6: No Drift Limb Ataxia - 7: Absent Sensory - 8: Normal Best Language - 9: No Aphasia Dysarthia - 10: Normal Extinction And Inattention - 11: 0 Score Total Score: 0
[2024-04-09] MEDS: meclizine 25 mg tablet 50 MG PO (15:54)
[2024-04-09] MEDS: ondansetron 2 mg/ML SDV 2 mL 4 MG IVP (15:54)
[2024-04-09] MEDS: iohexol 350 mg/mL 500 mL Btl (per mL) IV ×2 (16:23→17:37)
[2024-04-09 16:56] VITALS: BP 136/73; PULSE 88; O2SAT 96
--- NOTE | 2024-04-09 17:12 | CTR_ITS ---
PROCEDURE INFORMATION: Exam: CTA Chest With Contrast Exam date and time: 04/09/2024 5:28 PM Age: 53 years old Clinical indication: Abnormal findings; Abnormal radiologic exam of lung or chest; Additional info: Pe TECHNIQUE: Imaging protocol: Computed tomographic angiography of the chest with contrast. Exam focused on the arteries. 3D rendering (Not supervised by radiologist): MIP and/or 3D reconstructed images were created by the technologist. Radiation optimization: All CT scans at this facility use at least one of these dose optimization techniques: automated exposure control; mA and/or kV adjustment per patient size (includes targeted exams where dose is matched to clinical indication); or iterative reconstruction. Contrast material: OMNI 350; Contrast volume: 60 ml; Contrast route: INTRAVENOUS (IV); COMPARISON: 1. CT angio chest PE protcl [id number] 08/28/2018 6:24 AM 2. CTA head/neck dated 04/09/2024 RADIATION DOSE METRICS: Total DLP (mGy-cm): 382 FINDINGS: Pulmonary arteries: Previously seen filling defect within a segmental branch of the right upper lobe on CTA head/neck dated 04/09/2024 is not clearly identified on current study and may have been artifactual. No filling defects identified within the pulmonary arteries to suggest pulmonary embolism. Aorta: No thoracic aortic aneurysm or dissection. Lungs: Mild bibasilar atelectasis/scar. No focal lung consolidation. Pleural spaces: No pneumothorax. No pleural effusion. Heart: No cardiomegaly. No pericardial effusion. Mediastinal space: Visualized trachea and esophagus are unremarkable in appearance. Lymph nodes: Nonspecific borderline mediastinal lymph nodes measuring up to 1.5 x 1.0 cm in the precarinal region. Nonspecific right hilar lymph node measuring up to 1.9 x 1.0 cm. Nonspecific left hilar lymph node measuring up to 1.6 x 1.0 cm. No axillary lymphadenopathy. Gallbladder and biliary ducts: Status post cholecystectomy. Bones/joints: No acute bony abnormality. Soft tissues: Subcutaneous soft tissues are unremarkable. CT/CT angio chest PE protcl [id number] IMPRESSION: 1. Previously seen filling defect within a segmental branch of the right upper lobe on CTA head/neck dated 04/09/2024 is not clearly identified on current study and may have been artifactual. No definite filling defects identified within the pulmonary arteries to suggest pulmonary embolism. 2. No focal lung consolidation. 3. No thoracic aortic aneurysm or dissection. 4. Nonspecific borderline mediastinal and hilar lymph nodes.
[2024-04-09 18:02] LABS: NT Pro B Type Natriuretic Pept 830 pg/mL (0-125)
[2024-04-09 19:01] VITALS: BP 136/73; PULSE 88; RESP 18; TEMP 36.8; O2SAT 96
== END 2024-04-09 19:03 | disposition home or self-care (01) ==
PROVIDERS: Emergency Provider Emergency Medicine; PCP Family Medicine
DX: R42 Dizziness and giddiness (principal); Z87.891 Personal history of nicotine dependence; E78.5 Hyperlipidemia, unspecified
CPT/HCPCS: 70496; 70498; 71275; 80053; 83690; 83880; 85025; 96374; 99285; J2405; J8597; Q9967

== ENCOUNTER → 2024-06-25 16:31 | Outpatient (BNVA) | payer MEDICAID, SELFPAY | PROVIDERS: PCP Family Medicine | DX: N39.0 Urinary tract infection, site not specified (principal) | CPT/HCPCS: 81000 ==

== ENCOUNTER → 2024-10-21 09:30 | Outpatient (BNVA) | payer MEDICAID, SELFPAY | PROVIDERS: PCP Family Medicine; Visit Provider Family Medicine | DX: I10 Essential (primary) hypertension (principal); E78.2 Mixed hyperlipidemia | CPT/HCPCS: 80048; 80061 ==

== ENCOUNTER → 2025-03-10 14:23 | Outpatient (BNVA) | payer MEDICAID, SELFPAY | PROVIDERS: PCP Family Medicine; Visit Provider Internal Medicine | DX: R07.9 Chest pain, unspecified (principal) | CPT/HCPCS: 93005 ==

== ENCOUNTER → 2025-03-27 10:19 | Outpatient (BNVA) | payer MEDICAID, SELFPAY | PROVIDERS: PCP Family Medicine; Visit Provider Family Medicine | DX: I63.89 Other cerebral infarction (principal); R42 Dizziness and giddiness; D49.6 Neoplasm of unspecified behavior of brain | CPT/HCPCS: 80053; 84443; 85025; 85651; 86140 ==

== ENCOUNTER 2025-04-03 07:24 | Outpatient (CLI) | payer MEDICAID, SELFPAY ==
--- NOTE | 2025-04-03 | ECG_ITS ---
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 Interpretive Statements LEXISCAN SESTAMIBI STRESS TEST Procedure: At the baseline, the blood pressure was 122/88 mmHg with a heart rate of 89 bpm. The electrocardiogram showed normal sinus rhythm, normal axis with normal ST and T's. The Lexiscan was infused over a period of 20 seconds. A total of 0.4 mg of Lexiscan was infused. The stress phase was continued for a total of 5 minutes. Heart rate was at the end of stress phase was 110 bpm and a blood pressure of 119/84 mmHg. The EKG at the peak infusion revealed normal sinus rhythm with no significant ST-T wave changes. Sestamibi was injected 20 seconds after the Lexiscan infusion. Blood pressure at the end of recovery phase was 114/81 mmHg with a heart rate of 107 bpm. Conclusion: 1. Normal EKG response to Lexiscan infusion 2. No Lexiscan induced chest pain or cardiac arrhythmia. 3. Normal blood pressure and heart rate response. 4. Sestamibi/sestamibi perfusion scan pending; see separate report. Electronically Signed On 04-03-2025 12:38:19 CDT by Reuben Schmitt M.D. [email or web address]
[2025-04-03 07:38] VITALS: BMI 39.0
--- NOTE | 2025-04-03 07:38 | NMCV_ITS ---
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 Images obtained in supine and prone position. SPECT RESULTS Technical Quality: Good Raw Data Analysis: Normal Image Corrections: No attenuation or motion correction applied Summed Stress Score: 0 Summed Rest Score: 0 Summed Difference Score: 0 PERFUSION FINDINGS SPECT images demonstrate homogeneous tracer distribution throughout the myocardium. FUNCTIONAL RESULTS (calculated via Gated SPECT) Stress Image LV EF (%): 85 Stress EDV (mL):55 TID: 0.92 Stress ESV (mL):8 FUNCTIONAL FINDINGS: There is normal left ventricular systolic function. IMPRESSIONS 1. Normal myocardial perfusion imaging with no evidence of ischemia 2. LV systolic function is normal Reuben Schmitt MD (Electronically Signed) Final Date: 03 April 2025 10:31 S
[2025-04-03 08:52] VITALS: BP 114/81; PULSE 108
== END 2025-04-03 07:25 | disposition home or self-care (01) ==
PROVIDERS: PCP Family Medicine; Visit Provider Internal Medicine
DX: R07.9 Chest pain, unspecified (principal)
CPT/HCPCS: 36415; 78452; 93017; 96374; A9500; J2785

== ENCOUNTER → 2025-04-10 13:12 | Outpatient (BNVA) | payer MEDICAID, SELFPAY | PROVIDERS: PCP Family Medicine; Visit Provider Nurse Practitioner | DX: M25.512 Pain in left shoulder (principal) | CPT/HCPCS: 73030 ==

== ENCOUNTER → 2025-06-09 15:40 | Outpatient (BNVA) | payer OTHER, MEDICAID, SELFPAY | PROVIDERS: PCP Family Medicine; Visit Provider Nurse Practitioner | DX: M25.531 Pain in right wrist (principal) | CPT/HCPCS: 84550 ==

== ENCOUNTER → 2025-06-23 14:52 | Outpatient (BNVA) | payer OTHER, MEDICAID, SELFPAY | PROVIDERS: PCP Family Medicine; Visit Provider Nurse Practitioner | DX: R10.9 Unspecified abdominal pain (principal) | CPT/HCPCS: 74018 ==

== ENCOUNTER → 2025-07-03 14:14 | Outpatient (BNVA) | payer OTHER, MEDICAID, SELFPAY | PROVIDERS: PCP Family Medicine; Visit Provider Nurse Practitioner | DX: R50.9 Fever, unspecified (principal); R53.83 Other fatigue | CPT/HCPCS: 87400; 87426 ==

== ENCOUNTER → 2025-08-25 09:22 | Outpatient (BNVA) | payer OTHER, MEDICAID, SELFPAY | PROVIDERS: PCP Family Medicine; Visit Provider Family Medicine | DX: Z20.822 Contact with and (suspected) exposure to COVID-19 (principal); R68.89 Other general symptoms and signs | CPT/HCPCS: 87400; 87426 ==